=== PATIENT | male | born 1975 | race American Indian/Alaskan Native ===

== ENCOUNTER 2019-07-26 06:11 | Day surgery (SDC) | payer OTHER ==
[~2019-07-26 06:11] MED LIST: ceFAZolin/STERILE WATER 2 GM/20 ML SYRINGE IV NR
--- NOTE | 2019-07-26 07:23 | Anesthesia Consultation ---
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
--- NOTE | 2019-07-26 07:23 | Anesthesia Day of Surgery ---
Anesthesia Day of Surgery - Day of Surgery Patient Examined: Yes Patient H&P Reviewed: Yes Patient is NPO: Yes
[2019-07-26] MEDS ORDERED: LACTATED RINGERS 1,000 ML ONE (07:24)
[2019-07-26] MEDS ORDERED: LACTATED RINGERS 1,000 ML IV SCH (08:00)
[2019-07-26] MEDS ORDERED: FAMOTIDINE 20 MG/2 ML INJ IV NR (08:00)
[2019-07-26] MEDS ORDERED: MIDAZOLAM 2 MG/2 ML INJ IV NR (08:00)
[2019-07-26] MEDS ORDERED: HYDROmorphone 1 MG/1 ML INJ ONE ×2 (08:01→10:13)
[2019-07-26] MEDS ORDERED: PROPOFOL 200 MG/20 ML VIAL IV ONE (08:01)
[2019-07-26] MEDS ORDERED: LIDOCAINE MPF (2%) 20 MG/1 ML VIAL 5 ML ONE (08:02)
[2019-07-26] MEDS ORDERED: KETOROLAC 30 MG/1 ML INJ ONE (09:02)
[2019-07-26] MEDS ORDERED: ONDANSETRON 4 MG/2 ML INJ ONE (09:02)
--- NOTE | 2019-07-26 09:08 | Short Stay Summary ---
Short Stay Documentation Date of service: 07/26/19 Narrative H&P: 43 yr old male with 10mm left renal stone female present needs eswl - History Past Medical History: No medical history Past Surgical History: No surgical history Social history: no significant social history, single - Allergies and Medications Current Medications: Allergies No Known Allergies Allergy (Verified 06/11/19 16:18) Home Medications Medication Instructions Recorded Confirmed Last Taken Type Cholecalciferol (Vitamin D3) 2,000 unit PO QDAY 07/20/19 07/26/19 07/21/19 08:00 History [Vitamin D3 2,000 UNIT CAP] Active Medications Cefazolin Sodium (Ancef/Sterile Water 2 Gm/20 Ml) 2 gm IV PREOP NR Stop: 07/26/19 23:59 Famotidine (Pepcid) 20 mg IV PREOP NR Stop: 07/26/19 16:00 Last Admin: 07/26/19 07:37 Dose: 20 mg Documented by: Lactated Ringer's (Lactated Ringers) 1,000 mls @ 100 mls/hr IV DIRECT MELISSA Last Admin: 07/26/19 07:37 Dose: 100 mls/hr Documented by: Midazolam HCl (Versed) 2 mg IV PREOP NR Stop: 07/26/19 23:59 - Physical exam General appearance: no acute distress, well-nourished Integumentary: no rash, no growths HEENT: Atraumatic, PERRLA, EOMI Lungs: Clear to auscultation Heart: Regular rate, No murmurs Gastrointestinal: normal Male Genitourinary: normal Rectal Exam: deferred Extremities: no ischemia, No edema - Brief post op/procedure progress note Date of procedure: 07/26/19 Pre-op diagnosis: left renal stone Post-op diagnosis: same Procedure: left eswl Anesthesia: GETA Surgeon: EVANGELINA MARIE Pathology: none Condition: stable - Hospital course Hospital course: amandam, abena, post op info on chart - Disposition Condition at discharge: Stable Disposition: DC-01 TO HOME OR SELFCARE Short Stay Discharge Plan Follow up with: PRIMARY CARE, [Primary Care Provider] - 7 Days
--- NOTE | 2019-07-26 09:38 | Operative Report ---
PREOPERATIVE DIAGNOSIS: Left renal stone, 10 mm. POSTOPERATIVE DIAGNOSIS: Left renal stone, 10 mm. PROCEDURE: Left extracorporal shock wave lithotripsy, staged procedure. SURGEON: Mansoor Mojica MD ANESTHESIA: General. ESTIMATED BLOOD LOSS: Minimal. FLUIDS: Crystalloid. COMPLICATIONS: No complications. INDICATIONS: This patient is a 43-year-old gentleman seen by Dr. Begum in the office. CT of abdomen and pelvis revealed a left 10 mm stone. Risks, benefits, and complications were explained. Written information given. The patient agreed to proceed with surgical intervention. DESCRIPTION OF PROCEDURE: The patient was taken to the operative suite, placed in a supine position. After adequate general anesthesia, his stone was localized in 2 planes using fluoroscopy. Extracorporal shock wave lithotripsy was administered with a maximum kV of 8, 2500 shocks. 5-minute renal pause after 200 shocks was also performed. Adequate fragmentation could be appreciated. The patient tolerated the procedure well. He was extubated and taken to recovery room. He will go home on Ultram and [place] and strain his urine. JOB# [id number] [facility]
[2019-07-26 10:17] VITALS: BP 111/70
--- NOTE | 2019-07-26 18:57 | Post Anesthesia Evaluation ---
- Post Anesthesia Evaluation Patient Participated: Yes Airway Patent: Yes Stable Respiratory Function: Yes Nausea/Vomiting: No Temp > 96.8F: Yes Pain Manageable: Yes Adequeate Hydration: Yes Anesthesia Complications: No Block Receding Appropriately: Not Applicable Patient on Ventilator: No
== END 2019-07-26 06:12 | disposition home or self-care (01) ==
LOC: OR 06:11
PROVIDERS: ATTEND Urology
DX: N20.0 Calculus of kidney (principal); Z79.899 Other long term (current) drug therapy; Z98.890 Other specified postprocedural states
CPT/HCPCS: 50590; J0690; J1170; J1885; J2250; J2405; J2704; J7120

== ENCOUNTER 2019-08-21 03:24 | Emergency (ER) | payer SELFPAY ==
[2019-08-21 04:29] LABS: Bilirubin,Urine NEG (Negative); Blood,Urine SM (Negative); Color,Urine Straw (Yellow); Protein,Urine <15 mg/dL mg/dL (Negative); Urobilinogen,Urine < 2.0 mg/dL (<2.0)
[2019-08-21] MEDS ORDERED: MORPHINE IV ONE (04:37)
[2019-08-21] MEDS ORDERED: TORADOL IV ONE (04:37)
[2019-08-21] MEDS ORDERED: ZOFRAN IV ONE (04:37)
[2019-08-21] MEDS ORDERED: NACL 0.9% 1000 ML 1,000 ML IV ONE (04:37)
--- NOTE | 2019-08-21 04:45 | Emergency Department Report ---
ED General Adult HPI - General Chief complaint: Abdominal Pain Stated complaint: FLANK PAIN/EMESIS Time Seen by Provider: 08/21/19 04:21 Source: patient Mode of arrival: Ambulatory Limitations: No Limitations - History of Present Illness Initial comments: Patient is a 44-year-old male presents emergency room with complaints of left- sided flank pain that began yesterday. pt has associated nausea and vomiting. States that he had a lithotripsy done by Dr. Mojica, urologist on and denies any complications. Patient denies any diarrhea, fever, hematuria, dysuria. He denies any other past medical history or allergies medications. - Related Data Home Medications Medication Instructions Recorded Confirmed Last Taken Cholecalciferol (Vitamin D3) 2,000 unit PO QDAY 07/20/19 07/26/19 07/21/19 08:00 [Vitamin D3 2,000 UNIT CAP] Previous Rx's Medication Instructions Recorded Last Taken Type Ondansetron [Zofran Odt] 4 mg PO Q8HR PRN #10 tab.rapdis 08/21/19 Unknown Rx Tamsulosin [Flomax] 0.4 mg PO QDAY 5 Days #5 cap 08/21/19 Unknown Rx traMADol [Ultram 50 MG tab] 50 mg PO Q6HR PRN #10 tablet 08/21/19 Unknown Rx Allergies Allergy/AdvReac Type Severity Reaction Status Date / Time No Known Allergies Allergy Verified 06/11/19 16:18 ED Review of Systems ROS: Stated complaint: FLANK PAIN/EMESIS Other details as noted in HPI Comment: All other systems reviewed and negative ED Past Medical Hx - Past Medical History Previous Medical History?: Yes Hx Hypertension: No Hx Renal Disease: Yes (kidney stone) Hx Kidney Stones: Yes Hx Tuberculosis: Yes (POSITIVE SKIN TEST,NO TX,NEG CXR-2013) Hx HIV: No - Surgical History Past Surgical History?: Yes Additional Surgical History: l - Social History Smoking Status: Never Smoker Substance Use Type: Alcohol - Medications Home Medications: Home Medications Medication Instructions Recorded Confirmed Last Taken Type Cholecalciferol (Vitamin D3) 2,000 unit PO QDAY 07/20/19 07/26/19 07/21/19 08:00 History [Vitamin D3 2,000 UNIT CAP] Ondansetron [Zofran Odt] 4 mg PO Q8HR PRN #10 tab.rapdis 08/21/19 Unknown Rx Tamsulosin [Flomax] 0.4 mg PO QDAY 5 Days #5 cap 08/21/19 Unknown Rx traMADol [Ultram 50 MG tab] 50 mg PO Q6HR PRN #10 tablet 08/21/19 Unknown Rx ED Physical Exam - General Limitations: No Limitations General appearance: alert, in no apparent distress - Head Head exam: Present: atraumatic, normocephalic - Eye Eye exam: Present: normal appearance - ENT ENT exam: Present: mucous membranes moist - Respiratory Respiratory exam: Present: normal lung sounds bilaterally. Absent: respiratory distress, wheezes, rales, rhonchi, stridor, chest wall tenderness, accessory mu scle use, decreased breath sounds, prolonged expiratory - Cardiovascular Cardiovascular Exam: Present: regular rate, normal rhythm, normal heart sounds. Absent: systolic murmur, diastolic murmur, rubs, gallop - GI/Abdominal GI/Abdominal exam: Present: soft, tenderness (mild left sided), normal bowel sounds. Absent: distended, guarding, rebound, rigid - Back Exam Back exam: Present: CVA tenderness (L). Absent: CVA tenderness (R) - Neurological Exam Neurological exam: Present: alert, oriented X3 - Psychiatric Psychiatric exam: Present: normal affect, normal mood - Skin Skin exam: Present: warm, dry, intact, normal color ED Course Vital Signs 08/21/19 08/21/19 08/21/19 03:30 05:27 05:28 Temperature 98.1 F Pulse Rate 85 Respiratory 16 16 16 Rate Blood Pressure 131/89 Blood Pressure [Right] O2 Sat by Pulse 99 Oximetry 08/21/19 06:08 Temperature Pulse Rate 76 Respiratory 16 Rate Blood Pressure Blood Pressure 114/77 [Right] O2 Sat by Pulse Oximetry ED Medical Decision Making - Lab Data Result diagrams: 08/21/19 04:19 08/21/19 04:19 Lab Results 08/21/19 08/21/19 08/21/19 Range/Units 03:49 04:19 04:19 WBC 7.3 (4.5-11.0) K/mm3 RBC 4.70 (3.65-5.03) M/mm3 Hgb 13.4 (11.8-15.2) gm/dl Hct 40.6 (35.5-45.6) % MCV 86 (84-94) fl MCH 29 (28-32) pg MCHC 33 (32-34) % RDW 13.3 (13.2-15.2) % Plt Count 224 (140-440) K/mm3 Lymph % (Auto) 14.5 (13.4-35.0) % Winn % (Auto) 7.7 H (0.0-7.3) % Eos % (Auto) 1.0 (0.0-4.3) % Baso % (Auto) 0.4 (0.0-1.8) % Lymph # 1.1 L (1.2-5.4) K/mm3 Winn # 0.6 (0.0-0.8) K/mm3 Eos # 0.1 (0.0-0.4) K/mm3 Baso # 0.0 (0.0-0.1) K/mm3 Seg Neutrophils % 76.4 H (40.0-70.0) % Seg Neutrophils # 5.6 (1.8-7.7) K/mm3 Sodium 140 (137-145) mmol/L Potassium 4.3 (3.6-5.0) mmol/L Chloride 103.1 (98-107) mmol/L Carbon Dioxide 27 (22-30) mmol/L Anion Gap 14 mmol/L BUN 12 (9-20) mg/dL Creatinine 1.0 (0.8-1.5) mg/dL Estimated GFR > 60 ml/min BUN/Creatinine Ratio 12 % Glucose 134 H (75-100) mg/dL Calcium 9.0 (8.4-10.2) mg/dL Total Bilirubin 0.30 (0.1-1.2) mg/dL AST 18 (5-40) units/L ALT < 5 L (7-56) units/L Alkaline Phosphatase 92 (35-129) units/L Total Protein 7.5 (6.3-8.2) g/dL Albumin 4.4 (3.9-5) g/dL Albumin/Globulin Ratio 1.4 % Lipase 127 H (13-60) units/L Urine Color Straw (Yellow) Urine Turbidity Clear (Clear) Urine pH 6.0 (5.0-7.0) Ur Specific [place] 1.010 (1.003-1.030) Urine Protein <15 mg/dl (Negative) mg/dL Urine Glucose (UA) Neg (Negative) mg/dL Urine Ketones Neg (Negative) mg/dL Urine Blood Sm (Negative) Urine Nitrite Neg (Negative) Urine Bilirubin Neg (Negative) Urine Urobilinogen < 2.0 (<2.0) mg/dL Ur Leukocyte Esterase Neg (Negative) Urine WBC (Auto) 3.0 (0.0-6.0) /HPF Urine RBC (Auto) 3.0 (0.0-6.0) /HPF U Epithel Cells (Auto) < 1.0 (0-13.0) /HPF - Radiology Data Radiology results: report reviewed CT ABDOMEN AND PELVIS WITHOUT CONTRAST INDICATION / CLINICAL INFORMATION: left flank pain, lithotripsy on 07/26/19. TECHNIQUE: Axial CT images were obtained through the abdomen and pelvis without IV contrast. All CT scans at this location are performed using CT dose reduction for ALARA by means of automated exposure control. COMPARISON: None available. FINDINGS: LOWER CHEST: No significant abnormality. LIVER: No significant abnormality. GALLBLADDER: No significant abnormality. BILE DUCTS: No significant abnormality. PANCREAS: No significant abnormality. SPLEEN: No significant abnormality. ADRENALS: No significant abnormality. RIGHT KIDNEY and URETER: No significant abnormality. LEFT KIDNEY and URETER: Moderate left hydroureteronephrosis. Recent lithotripsy. Multiple nonobstructive calculi within the upper pole the left kidney. STOMACH and SMALL BOWEL: No significant abnormality. COLON: No significant abnormality. APPENDIX: No significant abnormality. PERITONEUM: No free fluid. No free air. No fluid collection. LYMPH NODES: No significant adenopathy. AORTA and ARTERIES: No significant abnormality. IVC and VEINS: No significant abnormality. URINARY BLADDER: 4 mm stone identified at the left ureterovesical junction.. REPRODUCTIVE ORGANS: No significant abnormality. ADDITIONAL FINDINGS: None. SKELETAL SYSTEM: No significant abnormality. IMPRESSION: 4 mm obstructive stone within the left ureterovesical junction causing moderate left hydroureteronephrosis. Signer Name: Fabio Prado MD Signed: 08/21/2019 5:09 AM Workstation Name: [id number] Transcribed By: SAMEER Dictated By: Fabio Prado MD Electronically Authenticated By: Fabio Prado MD Signed Date/Time: 08/21/19 0509 - Medical Decision Making Patient is a 44-year-old male presents emergency room with complaints of left- sided flank pain that began yesterday. pt has associated nausea and vomiting. States that he had a lithotripsy done by Dr. Mojica, urologist on and denies any complications. Patient denies any diarrhea, fever, hematuria, dysuria. He denies any other past medical history or allergies medications. VSS. on exam: left sided CVAT, mild left sided abd tenderness, no guarding, no rebound, no peritoneal signs. labs are stable, no leukocytosis, normal kidney function. UA without evidence of UTI. CT abd pelvis 4 mm obstructive stone within the left ureterovesical junction causing moderate left hydroureteronephrosis. Discussed case with Dr. Franky Streeter who states that there is an 80% chance of patient passing the stone where his kidney stone is present and the patient can be discharged home and follow-up as an outpatient with his urologist. Patient given prescription for pain medication, Flomax, Zofran. advised pt to please take medication as prescribed. Do not drive or operate heavy machinery while taking pain medication. Please increase your water intake for the next several days. follow up with Dr. Mojica, your urologist in the next 2-3 days. Return to the emergency room for any new or worsening symptoms. - Differential Diagnosis nephrolithiasis, obstructive stone, hydronephrosis, pyelonephritis Critical care attestation.: If time is entered above; I have spent that time in minutes in the direct care of this critically ill patient, excluding procedure time. ED Disposition Clinical Impression: Left flank pain, Nephrolithiasis, Hydroureteronephrosis Disposition: DC-01 TO HOME OR SELFCARE Is pt being admited?: No Does the pt Need Aspirin: No Condition: Stable Instructions: Kidney Stones (ED) Additional Instructions: please take medication as prescribed. Do not drive or operate heavy machinery while taking pain medication. Please increase your water intake for the next several days. follow up with Dr. Mojica, your urologist in the next 2-3 days. Return to the emergency room for any new or worsening symptoms. Prescriptions: Tamsulosin [Flomax] 0.4 mg PO QDAY 5 Days #5 cap traMADol [Ultram 50 MG tab] 50 mg PO Q6HR PRN #10 tablet PRN Reason: Pain , Severe (7-10) Ondansetron [Zofran Odt] 4 mg PO Q8HR PRN #10 tab.rapdis PRN Reason: Nausea And Vomiting Referrals: EVANGELINA MOJICA MD [Staff Physician] - 2-3 Days Time of Disposition: 05:23 Print Language: STATELESS
[2019-08-21 04:54] LABS: Basophils % (Auto) 0.4 % (0.0-1.8); Eosinophils # (Auto) 0.1 K/mm3 (0.0-0.4); Hematocrit 40.6 % (35.5-45.6); Hemoglobin 13.4 gm/dl (11.8-15.2); Lymphocytes # (Auto) 1.1 K/mm3 (1.2-5.4); Lymphocytes % (Auto) 14.5 % (13.4-35.0); Mean Corpuscular HGB Conc 33 % (32-34); Mean Corpuscular Volume 86 fl (84-94); Monocytes # (Auto) 0.6 K/mm3 (0.0-0.8); Monocytes % (Auto) 7.7 % (0.0-7.3); Platelet Count 224 K/mm3 (140-440); Red Cell Distribution Width 13.3 % (13.2-15.2)
[2019-08-21 05:12] LABS: Albumin 4.4 g/dL (3.9-5); BUN/Creatinine Ratio 12; Blood Urea Nitrogen 12 mg/dL (9-20); Hemolysis Index 4
[2019-08-21 05:13] LABS: Alanine Aminotransferase < 5 units/L (7-56)
--- NOTE | 2019-08-21 05:13 | Cat Scan Report ---
CT ABDOMEN AND PELVIS WITHOUT CONTRAST INDICATION / CLINICAL INFORMATION: left flank pain, lithotripsy on 07/26/19. TECHNIQUE: Axial CT images were obtained through the abdomen and pelvis without IV contrast. All CT scans at [facility] location are performed using CT dose reduction for ALARA by means of automated exposure control. COMPARISON: None available. FINDINGS: LOWER CHEST: No significant abnormality. LIVER: No significant abnormality. GALLBLADDER: No significant abnormality. BILE DUCTS: No significant abnormality. PANCREAS: No significant abnormality. SPLEEN: No significant abnormality. ADRENALS: No significant abnormality. RIGHT KIDNEY and URETER: No significant abnormality. LEFT KIDNEY and URETER: Moderate left hydroureteronephrosis. Recent lithotripsy. Multiple nonobstruct evgeny calculi within the upper pole the left kidney. STOMACH and SMALL BOWEL: No significant abnormality. COLON: No significant abnormality. APPENDIX: No significant abnormality. PERITONEUM: No free fluid. No free air. No fluid collection. LYMPH NODES: No significant adenopathy. AORTA and ARTERIES: No significant abnormality. IVC and VEINS: No significant abnormality. URINARY BLADDER: 4 mm stone identified at the left ureterovesical junction.. REPRODUCTIVE ORGANS: No significant abnormality. ADDITIONAL FINDINGS: None. SKELETAL SYSTEM: No significant abnormality. IMPRESSION: 4 mm obstructive stone within the left ureterovesical junction causing moderate left hydroureteroneph rosis. Signer Name: Fabio Prado MD Signed: 08/21/2019 5:09 AM Workstation Name: [id number]
[2019-08-21 06:09] VITALS: BP 114/77
== END 2019-08-21 06:07 | disposition home or self-care (01) ==
LOC: ED 03:24
DX: N13.2 Hydronephrosis with renal and ureteral calculous obstruction (principal); Z87.442 Personal history of urinary calculi; Z79.899 Other long term (current) drug therapy
CPT/HCPCS: 36415; 74176; 80053; 81001; 83690; 85025; 96361; 96374; 96375; 99284; J1885; J2270; J2405; J7030

== ENCOUNTER 2019-10-08 06:46 | Day surgery (SDC) | payer OTHER ==
[2019-10-08] MEDS ORDERED: ONDANSETRON 4 MG/2 ML INJ IV PRN (07:41)
[2019-10-08] MEDS ORDERED: fentaNYL 100 MCG/2 ML INJ IV PRN (07:41)
--- NOTE | 2019-10-08 07:42 | Anesthesia Day of Surgery ---
Anesthesia Day of Surgery - Day of Surgery Patient Examined: Yes Patient H&P Reviewed: Yes Patient is NPO: Yes
--- NOTE | 2019-10-08 07:58 | Anesthesia Consultation ---
Anesthesia Consult and Med Hx Date of service: 10/08/19 - Pre-Operative Health Status Proposed Anesthetic Plan: General - Pulmonary Hx Smoking: No Hx Respiratory Symptoms: No (positive TB test) Hx Sleep Apnea: No (JESUS PRE SCREEN LOW RISK.) - Cardiovascular System Hx Hypertension: No - Gastrointestinal Hx Gastroesophageal Reflux Disease: Yes (food related) - Other Systems Hx Cancer: No
[2019-10-08] MEDS ORDERED: LACTATED RINGERS 1,000 ML IV SCH (08:00)
[2019-10-08] MEDS ORDERED: MIDAZOLAM 2 MG/2 ML INJ IV NR (08:16)
[2019-10-08] MEDS ORDERED: ceFAZolin/STERILE WATER 2 GM/20 ML SYRINGE IV NR (08:26)
--- NOTE | 2019-10-08 08:36 | Anesthesia Consultation ---
Anesthesia Consult and Med Hx Date of service: 10/08/19 - Airway Anesthetic Teeth Evaluation: Dentures ROM Head & Neck: Adequate Mental/Hyoid Distance: Adequate Mallampati Class: Class II Intubation Access Assessment: Good - Pulmonary Exam CTA: Yes - Cardiac Exam Cardiac Exam: RRR - Pre-Operative Health Status ASA Pre-Surgery Classification: ASA2 Proposed Anesthetic Plan: General (Possible sinus arrthymia on EKG will get EKG otherwise asymptomatic ) - Pulmonary Hx Smoking: No Hx Respiratory Symptoms: No (positive TB test) Hx Sleep Apnea: No (JESUS PRE SCREEN LOW RISK.) - Cardiovascular System Hx Hypertension: No - Gastrointestinal Hx Gastroesophageal Reflux Disease: Yes (food related) - Other Systems Hx Cancer: No
--- NOTE | 2019-10-08 08:40 | Anesthesia Consultation ---
Anesthesia Consult and Med Hx Date of service: 10/08/19 - Airway Anesthetic Teeth Evaluation: Dentures ROM Head & Neck: Adequate Mental/Hyoid Distance: Adequate Mallampati Class: Class II Intubation Access Assessment: Good - Pulmonary Exam CTA: Yes - Cardiac Exam Cardiac Exam: RRR - Pre-Operative Health Status ASA Pre-Surgery Classification: ASA2 Proposed Anesthetic Plan: General (Possible sinus arrthymia on Monitor will get EKG otherwise asympyomatic ) - Pulmonary Hx Smoking: No Hx Respiratory Symptoms: No (positive TB test) Hx Sleep Apnea: No (JESUS PRE SCREEN LOW RISK.) - Cardiovascular System Hx Hypertension: No - Gastrointestinal Hx Gastroesophageal Reflux Disease: Yes (food related) - Other Systems Hx Cancer: No
--- NOTE | 2019-10-08 10:07 | Progress Note ---
Subjective Date of service: 10/08/19 (EKG shows patientis in Afib with slow heart rate 60- 80, assessed by Cardiology Dr Alonso - patient for cardiac work up prior to surgery , Dr Mojica informed , case postponed )
--- NOTE | 2019-10-08 10:12 | Consultation ---
History of Present Illness Consult date: 10/08/19 Requesting physician: EVANGELINA MARIE Consult reason: atrial fibrillation History of present illness: 44-year-old male with no past medical history had kidney stones here for repeat urological procedure for removal on preop assessment EKG shows new onset H fibrillation with controlled rate. Patient denies any palpitations chest pain or shortness of breath. Patient states being active without issue. States 2 years ago by the stress test that was negative. At [facility]. Patient is denying any fatigue or lightheadedness. No syncope. Past History Past Medical History: denies: No medical history Past Surgical History: Other (kidney stones) Social history: other (social drinker). denies: smoking, alcohol abuse, p rescription drug abuse Family history: denies: no significant family history Medications and Allergies Allergies Allergy/AdvReac Type Severity Reaction Status Date / Time No Known Allergies Allergy Verified 06/11/19 16:18 Home Medications Medication Instructions Recorded Confirmed Last Taken Type Cholecalciferol (Vitamin D3) 2,000 unit PO QDAY 07/20/19 10/03/19 07/21/19 08:00 History [Vitamin D3 2,000 UNIT CAP] Ondansetron [Zofran Odt] 4 mg PO Q8HR PRN #10 tab.rapdis 08/21/19 10/03/19 Unknown Rx Tamsulosin [Flomax] 0.4 mg PO QDAY 5 Days #5 cap 08/21/19 10/03/19 Unknown Rx traMADoL [Ultram 50 MG tab] 50 mg PO Q6HR PRN #10 tablet 08/21/19 10/03/19 Unknown Rx Active Meds: Active Medications Cefazolin Sodium (Ancef/Sterile Water 2 Gm/20 Ml) 2 gm IV PREOP NR Stop: 10/08/19 16:00 Fentanyl (Sublimaze) 50 mcg IV Q5MIN PRN PRN Reason: Pain , Severe (7-10) Stop: 10/08/19 22:00 Lactated Ringer's (Lactated Ringers) 1,000 mls @ 125 mls/hr IV DIRECT MELISSA Midazolam HCl (Versed) 2 mg IV ONCE NR Stop: 10/08/19 13:00 Ondansetron HCl (Zofran) 4 mg IV ONCE PRN PRN Reason: Nausea And Vomiting Stop: 10/08/19 22:00 Review of Systems All systems: negative (as per the HPI) Physical Examination General appearance: no acute distress, well-nourished HEENT: Positive: PERRL, Mucus Membranes Moist Neck: Positive: neck supple, trachea midline Cardiac: Positive: Irregularly Regular, S1/S2, Audible Murmur Lungs: Positive: clear to auscultation, Normal Breath Sounds Neuro: Positive: Grossly Intact Abdomen: Positive: Soft, Active Bowel Sounds. Negative: Tender, Distended Male genitourinary: Positive: normal Skin: Positive: Clear Incision: Cardiac Cath Site Musculoskeletal: No Pain, Normal Range of Motion Extremities: Present: normal. Absent: edema EKG interpretations - Telemetry EKG Rhythm: Atrial Fibrillation (with control rate 60s) Assessment and Plan 44-year-old male with new onset atrial fibrillation denies any chest pain or palpitations has no hypertension diabetes stroke we'll do an echocardiogram for LV function. Your 24-hour Holter for heart rate control as patient is on no AV hussein blocking agents. Check a thyroid level and lab work. Would advise postponement of urological procedure until further evaluation of new onset atrial fibrillation. Patient's chads score is 0 - Patient Problems (1) Atrial fibrillation Current Visit: Yes Status: Acute Qualifiers: Atrial fibrillation type: unspecified Qualified Code(s): I48.91 - Un specified atrial fibrillation (2) Pre-op evaluation Current Visit: Yes Status: Acute (3) Kidney calculus Current Visit: Yes Status: Acute
[2019-10-08 12:19] LABS: Basophils % (Auto) 0.8 % (0.0-1.8); Eosinophils # (Auto) 0.2 K/mm3 (0.0-0.4); Eosinophils % (Auto) 3.5 % (0.0-4.3); Hematocrit 42.8 % (35.5-45.6); Hemoglobin 14.5 gm/dl (11.8-15.2); Lymphocytes # (Auto) 2.1 K/mm3 (1.2-5.4); Lymphocytes % (Auto) 41.8 % (13.4-35.0); Mean Corpuscular HGB Conc 34 % (32-34); Mean Corpuscular Volume 86 fl (84-94); Monocytes # (Auto) 0.4 K/mm3 (0.0-0.8); Monocytes % (Auto) 8.8 % (0.0-7.3); Platelet Count 253 K/mm3 (140-440); Red Blood Count 5.01 M/mm3 (3.65-5.03); Red Cell Distribution Width 13.4 % (13.2-15.2)
[2019-10-08 12:35] LABS: BUN/Creatinine Ratio 14; Blood Urea Nitrogen 11 mg/dL (9-20); Calcium 9.4 mg/dL (8.4-10.2); Hemolysis Index 39
[2019-10-08 14:12] VITALS: BP 120/69
[2019-10-11] MEDS ORDERED: ceFAZolin/STERILE WATER 2 GM/20 ML SYRINGE IV NR (00:01)
== END 2019-10-08 12:45 | disposition home or self-care (01) ==
LOC: OR 06:46
PROVIDERS: ATTEND Urology
DX: N20.0 Calculus of kidney (principal); I48.91 Unspecified atrial fibrillation; K21.9 Gastro-esophageal reflux disease without esophagitis; Z53.8 Procedure and treatment not carried out for other reasons; Z79.899 Other long term (current) drug therapy; Z98.890 Other specified postprocedural states; I51.7 Cardiomegaly
CPT/HCPCS: 36415; 80048; 84439; 84443; 85025; 93005; 93010; 93306; J2250; J7120

== ENCOUNTER 2019-10-18 23:48 | Inpatient (IN) | payer OTHER, SELFPAY ==
--- NOTE | 2019-10-19 00:23 | XRay Report ---
CHEST 1 VIEW INDICATION / CLINICAL INFORMATION: Chest Pain. COMPARISON: None available. FINDINGS: SUPPORT DEVICES: None. HEART / MEDIASTINUM: No significant abnormality. LUNGS / PLEURA: No significant pulmonary or pleural abnormality. No pneumothorax. ADDITIONAL FINDINGS: No significant additional findings. IMPRESSION: 1. No significant change Signer Name: Wilfrido Dodson MD Signed: 10/19/2019 12:19 AM Workstation Name: [id number]
--- NOTE | 2019-10-19 00:29 | Emergency Department Report ---
ED Palpitations HPI - General Chief Complaint: Arrhythmia/Palpitations Stated Complaint: HEART PALPITATION Time Seen by Provider: 10/19/19 00:26 Source: patient Mode of arrival: Ambulatory Limitations: No Limitations - History of Present Illness Initial Comments: Patient is is a 44-year-old mellitus emergency room with complaints of palpitations, chest pain and dyspnea on exertion. Patient states his symptoms started today at 8 PM. Patient states he does not have a history of A. fib. Patient states the he's had palpitations in the past. Patient states his symptoms are worse with exertion and better with rest. Patient states the chest pain is in the center of his chest and is a 3 out of 10. Patient states his heart races at times. MD Complaint: rapid heart beat, "heart racing", palpitations -: Sudden Associated Symptoms: chest pain, shortness of breath. denies: syncope, near- syncope, nausea/vomiting, anxiety, diaphoresis, cough, parasthesias, feeling of impending doom, muscle cramps - Related Data Allergies Allergy/AdvReac Type Severity Reaction Status Date / Time No Known Allergies Allergy Verified 06/11/19 16:18 ED Review of Systems ROS: Stated complaint: HEART PALPITATION Other details as noted in HPI Constitutional: denies: chills, fever Eyes: denies: eye pain, eye discharge, vision change ENT: denies: ear pain, throat pain Respiratory: shortness of breath. denies: cough, wheezing Cardiovascular: chest pain, palpitations, dyspnea on exertion Endocrine: no symptoms reported Gastrointestinal: denies: abdominal pain, nausea, diarrhea Genitourinary: denies: urgency, dysuria Musculoskeletal: denies: back pain, joint swelling, arthralgia Skin: denies: rash, lesions Neurological: denies: headache, weakness, paresthesias Psychiatric: denies: anxiety, depression Hematological/Lymphatic: denies: easy bleeding, easy bruising ED Past Medical Hx - Past Medical History Previous Medical History?: Yes Hx Hypertension: No Hx GERD: Yes (FOOD RELATED) Hx Kidney Stones: Yes Hx Tuberculosis: Yes (POSITIVE SKIN TEST,NO TX,NEG CXR-2013) Hx HIV: No - Surgical History Past Surgical History?: No Additional Surgical History: l - Social History Smoking Status: Never Smoker Substance Use Type: None ED Physical Exam - General Limitations: No Limitations General appearance: alert, in no apparent distress - Head Head exam: Present: atraumatic, normocephalic - Eye Eye exam: Present: normal appearance - ENT ENT exam: Present: mucous membranes moist - Neck Neck exam: Present: normal inspection - Respiratory Respiratory exam: Present: normal lung sounds bilaterally. Absent: respiratory distress, wheezes, rales - Cardiovascular Cardiovascular Exam: Present: regular rate, normal rhythm. Absent: systolic murmur, diastolic murmur, rubs, gallop - GI/Abdominal GI/Abdominal exam: Present: soft, normal bowel sounds. Absent: distended, tenderness, guarding - Rectal Rectal exam: Present: deferred - Extremities Exam Extremities exam: Present: normal inspection - Back Exam Back exam: Present: normal inspection - Neurological Exam Neurological exam: Present: alert, oriented X3 - Psychiatric Psychiatric exam: Present: normal affect, normal mood - Skin Skin exam: Present: warm, dry, intact, normal color. Absent: rash ED Course Vital Signs 10/18/19 10/19/19 10/19/19 23:52 00:17 00:18 Temperature 97.9 F 97.9 F Pulse Rate 78 81 67 Respiratory 20 12 22 Rate Blood Pressure 124/86 Blood Pressure 126/86 [Right] O2 Sat by Pulse 99 100 100 Oximetry 10/19/19 10/19/19 10/19/19 00:30 00:45 01:00 Temperature Pulse Rate 74 73 70 Respiratory 24 19 19 Rate Blood Pressure 122/86 122/86 116/81 Blood Pressure [Right] O2 Sat by Pulse 99 100 100 Oximetry 10/19/19 10/19/19 10/19/19 01:15 01:30 02:00 Temperature Pulse Rate 62 59 L 73 Respiratory 20 21 19 Rate Blood Pressure 116/81 114/81 116/71 Blood Pressure [Right] O2 Sat by Pulse 99 97 100 Oximetry 10/19/19 10/19/19 10/19/19 02:30 03:00 03:30 Temperature Pulse Rate 76 76 71 Respiratory 13 22 Rate Blood Pressure 112/79 120/81 114/80 Blood Pressure [Right] O2 Sat by Pulse 99 99 98 Oximetry 10/19/19 10/19/19 04:00 04:30 Temperature Pulse Rate 89 75 Respiratory 12 22 Rate Blood Pressure 127/76 127/84 Blood Pressure [Right] O2 Sat by Pulse 98 98 Oximetry - Reevaluation(s) Reevaluation #1: I discussed all results with patient. I discussed plan of care patient. Patient agrees with plan of care and admission. Patient will be admitted to the hospitalist service. 10/19/19 03:23 - Consultations Consultation #1: Hospitalist consult for admission. Hospitalist admit patient. Hospitalist requested heparin drip to be started. 10/19/19 03:24 ED Medical Decision Making - Lab Data Result diagrams: 10/19/19 03:32 10/19/19 00:32 - EKG Data -: EKG Interpreted by Me EKG shows normal: axis, intervals, QRS complexes, ST-T waves Rate: normal - EKG Data Interpretation: other (A. fib) - Radiology Data Radiology results: report reviewed, image reviewed interpreted by me: No acute findings on cxr CHEST 1 VIEW INDICATION / CLINICAL INFORMATION: Chest Pain. COMPARISON: None available. FINDINGS: SUPPORT DEVICES: None. HEART / MEDIASTINUM: No significant abnormality. LUNGS / PLEURA: No significant pulmonary or pleural abnormality. No pneumothorax. ADDITIONAL FINDINGS: No significant additional findings. IMPRESSION: 1. No significant change - Medical Decision Making Patient is a 44-year-old male up since emergency room with complaints of chest pain, palpitations and racing heartbeat. Patient found to be in A. fib. Patient does not history of A. fib. Patient admitted to the hospitalist service for further evaluation and treatment and rule out ACS. Patient chest x-ray negative. Patient's labs unremarkable. Patient's EKG shows A. fib. After I discussed the case with the hospitalist, the hospitalist recommended a heparin drip. Patient's heparin drip protocol was initiated. - Differential Diagnosis A. fib, palpitations, chest pain, ACS. Critical Care Time: Yes Critical care time in (mins) excluding proc time.: 35 Critical care attestation.: If time is entered above; I have spent that time in minutes in the direct care of this critically ill patient, excluding procedure time. Critical Care Time: 35 minutes ED Disposition Clinical Impression: QUINTANILLA (dyspnea on exertion), Palpitations, New onset a-fib Atrial fibrillation Qualifiers: Atrial fibrillation type: unspecified Qualified Code(s): I48.91 - Unspecified atrial fibrillation Chest pain Qualifiers: Chest pain type: unspecified Qualified Code(s): R07.9 - Chest pain, unspecified Disposition: DC-09 OP ADMIT IP TO THIS HOSP Is pt being admited?: Yes Does the pt Need Aspirin: No Condition: Critical Time of Disposition: 03:25
[2019-10-19 00:54] LABS: Basophils % (Auto) 0.6 % (0.0-1.8); Eosinophils # (Auto) 0.2 K/mm3 (0.0-0.4); Hemoglobin 13.6 gm/dl (11.8-15.2); Lymphocytes # (Auto) 2.5 K/mm3 (1.2-5.4); Lymphocytes % (Auto) 47.1 % (13.4-35.0); Mean Corpuscular HGB Conc 34 % (32-34); Mean Corpuscular Volume 86 fl (84-94); Monocytes # (Auto) 0.5 K/mm3 (0.0-0.8); Monocytes % (Auto) 9.5 % (0.0-7.3); Platelet Count 258 K/mm3 (140-440); Red Blood Count 4.65 M/mm3 (3.65-5.03); Red Cell Distribution Width 13.6 % (13.2-15.2)
[2019-10-19 01:16] LABS: BUN/Creatinine Ratio 9; Blood Urea Nitrogen 8 mg/dL (9-20); Calcium 9.2 mg/dL (8.4-10.2); Hemolysis Index 2
[2019-10-19] MEDS ORDERED: HEPARIN 10,000 UNITS/10 ML VIAL IV ONE ×2 (03:21→18:27)
[2019-10-19 03:45] LABS: Hematocrit 39.9 % (35.5-45.6); Hemoglobin 13.4 gm/dl (11.8-15.2)
[2019-10-19] MEDS: HEPARIN/ 0.45% NACL DRIP 25,000 UNIT/500 ML BAG IV SCH ×3 (03:45→18:49)
[2019-10-19 03:55] LABS: INR 1.11 (0.87-1.13); Partial Thromboplastin Time 32.7 Sec. (24.2-36.6)
--- NOTE | 2019-10-19 03:59 | History and Physical Report ---
History of Present Illness Date of examination: 10/19/19 History of present illness: 44-year-old a history of kidney stones, GERD, comes to the emergency room for evaluation fluttering of his heart. He status post lithotripsy 9 weeks ago however he has a piece of this stone retained. On October 12 for a fo llow-up lithotripsy and he was noted to have an abnormal rhythm, he was having palpitations at the time. Dr. Perez saw the patient in consultation and he followed up with him where he had a monitor place for 24 hours. Today on 8 PM he started having palpitation which was constant, dizziness and associated chest pain that lasts for 1-2 seconds Review of systems Constitutional: no weight loss, chills, fever Ears, eyes, nose, mouth and throat: no nasal congestion, no nasal discharge, no sinus pressure, no vision change, no red eye. Neck: No neck pain or rigidity. Cardiovascular: + chest pain, palpitations Respiratory: no cough, shortness of breath Gastrointestinal: no abdominal pain, hematochezia Genitourinary : no frequency , no hematuria Musculoskeletal: no joint swelling or muscle ache Integumentary: no rash, no pruritis Neurological:no parathesias numbness, focal weakness Endocrine: no cold or heat intolerance, no polyuria or polydipsia Hematologic/Lymphatic: no easy bruising, no easy bleeding, no gland swelling Allergic/Immunologic: no urticaria, no angioedema. PAST MEDICAL HISTORY: Kidney stones, GERD PAST SURGICAL HISTORY:none SOCIAL HISTORY:social alcohol, no drugs or tobacco FAMILY HISTORY: Hypertension Medications and Allergies Allergies Allergy/AdvReac Type Severity Reaction Status Date / Time No Known Allergies Allergy Verified 06/11/19 16:18 Home Medications Medication Instructions Recorded Confirmed Last Taken Type No Known Home Medications [No 10/19/19 10/19/19 Unknown History Reported Home Medications] Active Meds: Active Medications Heparin Sodium/Sodium Chloride (Heparin/ 0.45% Nacl-25,000 Unit/500 Ml) 25,000 unit in 500 mls @ 24 mls/hr IV TITR MELISSA; Protocol Last Admin: 10/19/19 03:45 Dose: 1,200 units/hr, 24 mls/hr Documented by: Exam - Physical Exam Narrative exam: Gen. appearance: Patient lying in bed, no apparent distress HEENT: Normocephalic, atraumatic, pupils equally round and reactive to light, extraocular movement intact, and no sclericterus,. No JVD or thyromegaly or nodule,neck supple, no carotid bruit ,mucous membranes moist, no exudate or erythema Heart: S1, S2, irregular rate and rhythm Lungs: Clear bilaterally, breathing comfortable Abdomen: Positive bowel sounds, non-tender, nondistended, no organomegaly Extremity:no edema cyanosis, clubbing Skin: no rash, dry, warm Neuro: Oriented 3, cranial nerves II-12 intact, speech is fluent, motor and sensory intact - Constitutional Vitals: Temp Pulse Resp BP Pulse Ox 97.9 F 71 22 114/80 98 10/19/19 00:18 10/19/19 03:30 10/19/19 03:30 10/19/19 03:30 10/19/19 03:30 Results - Labs CBC & Chem 7: 10/19/19 05:48 10/19/19 05:48 Labs: Abnormal lab results 10/19/19 10/19/19 Range/Units 00:32 00:32 Lymph % (Auto) 47.1 H (13.4-35.0) % [place] % (Auto) 9.5 H (0.0-7.3) % Seg Neutrophils % 39.8 L (40.0-70.0) % BUN 8 L (9-20) mg/dL Glucose 102 H (75-100) mg/dL - Imaging and Cardiology EKG: image reviewed Chest x-ray: report reviewed Assessment and Plan Assessment New-onset A. fib Check cardiac enzymes, TSH, echo Consult cardiology Continue heparin drip, start aspirin DVT prophylaxis
[2019-10-19] MEDS ORDERED: ONDANSETRON 4 MG/2 ML INJ IV PRN (04:55)
[2019-10-19] MEDS ORDERED: ACETAMINOPHEN 325 MG TAB PO PRN (04:55)
[2019-10-19 06:13] LABS: Eosinophils # (Auto) 0.1 K/mm3 (0.0-0.4); Eosinophils % (Auto) 2.3 % (0.0-4.3); Hemoglobin 13.6 gm/dl (11.8-15.2); Lymphocytes # (Auto) 1.7 K/mm3 (1.2-5.4); Lymphocytes % (Auto) 36.2 % (13.4-35.0); Mean Corpuscular HGB Conc 34 % (32-34); Mean Corpuscular Volume 86 fl (84-94); Monocytes # (Auto) 0.4 K/mm3 (0.0-0.8); Platelet Count 258 K/mm3 (140-440); Red Blood Count 4.67 M/mm3 (3.65-5.03); Red Cell Distribution Width 13.7 % (13.2-15.2)
[2019-10-19 06:28] LABS: Creatine Kinase MB 1.4 ng/mL (0.0-4.0)
[2019-10-19 06:29] LABS: BUN/Creatinine Ratio 9; Blood Urea Nitrogen 8 mg/dL (9-20); Calcium 9.4 mg/dL (8.4-10.2); Hemolysis Index 1
[2019-10-19] MEDS: ASPIRIN 81 MG TAB CHEW PO SCH (10:40)
--- NOTE | 2019-10-19 11:36 | Consultation ---
History of Present Illness Consult date: 10/19/19 Requesting physician: FROYLAN MICHAUD Consult reason: atrial fibrillation History of present illness: The pt is a 44-year-old male with a past medical history of kidney stones and newly diagnosed AFib. He has been seen by Dr. Alonso. On 10/08/2019, pt presented for scheduled OP lithotropsy and preop EKG showed new onset AFib with controlled rate. At that time, pt had no cardiac complaints. He underwent echo 10/08/2019 which showed EF 50%, mild LVH, trace TR, no significant abnormalities. He was scheduled for 24Hr Holter study in our office which he completed and results are pending. Yesterday evening around 8:30PM he developed palpitations and dizziness and thus decided to seek medical attention. He was found to be in AFib with controlled ventricular rate following arrival and thus was initiated on heparin gtt and admitted to telemetry overnight. he remains in AFib with CVR this morning. Pt denies any occurrence of chest pain, SOB, n/v, diaphoresis or syncope. He has no known prior cardiac issues, no HTN, DM, HLP. He denies tobacco use, ETOH use or illicit drug use. Past History Past Surgical History: Other (kidney stones) Social history: denies: smoking, alcohol abuse Medications and Allergies Allergies Allergy/AdvReac Type Severity Reaction Status Date / Time No Known Allergies Allergy Verified 06/11/19 16:18 Home Medications Medication Instructions Recorded Confirmed Last Taken Type No Known Home Medications [No 10/19/19 10/19/19 Unknown History Reported Home Medications] Active Meds: Active Medications Acetaminophen (Tylenol) 650 mg PO Q4H PRN PRN Reason: Pain MILD(1-3)/Fever >100.5/RODRÍGUEZ Aspirin (Baby Aspirin) 81 mg PO DAILY [facility] Last Admin: 10/19/19 10:40 Dose: 81 mg Documented by: Heparin Sodium/Sodium Chloride (Heparin/ 0.45% Nacl-25,000 Unit/500 Ml) 25,000 unit in 500 mls @ 24 mls/hr IV TITR [facility]; Protocol Last Admin: 10/19/19 11:07 Dose: 1,100 units/hr, 22 mls/hr Documented by: Ondansetron HCl (Zofran) 4 mg IV Q8H PRN PRN Reason: Nausea And Vomiting Sodium Chloride (Sodium Chloride Flush Syringe 10 Ml) 10 ml IV BID [facility] Last Admin: 10/19/19 10:44 Dose: 10 ml Documented by: Sodium Chloride (Sodium Chloride Flush Syringe 10 Ml) 10 ml IV PRN PRN PRN Reason: LINE FLUSH Review of Systems Constitutional: no weight loss, no weight gain, no fever, no chills, no sweats Ears, nose, mouth and throat: no ear pain, no nose pain, no sinus pressure, no sinus pain Cardiovascular: palpitations, rapid/irregular heart beat, lightheadedness, no chest pain, no orthopnea, no edema, no syncope, no shortness of breath, no dyspnea on exertion, no high blood pressure, no leg edema, no decreased exercise tolerance Respiratory: no cough, no shortness of breath, no dyspnea on exertion, no congestion, no wheezing, no pain on inspiration Gastrointestinal: no abdominal pain, no nausea, no vomiting, no diarrhea, no constipation, no change in bowel habits Genitourinary Male: no dysuria, no hematuria, no flank pain, no discharge, no urinary frequency, no urinary hesitancy Musculoskeletal: no neck stiffness, no neck pain, no shooting arm pain, no arm numbness/tingling, no low back pain, no shooting leg pain Integumentary: no rash, no pruritis, no redness, no sores, no wounds Neurological: no head injury, no paralysis, no weakness, no parathesias, no numbness, no tingling, no seizures, no syncope Psychiatric: no anxiety Endocrine: no cold intolerance, no heat intolerance Hematologic/Lymphatic: no easy bruising, no easy bleeding Allergic/Immunologic: no urticaria Physical Examination Vital Signs Temp Pulse Resp BP Pulse Ox 97.9 F 78 20 124/86 99 10/18/19 23:52 10/18/19 23:52 10/18/19 23:52 10/18/19 23:52 10/18/19 23:52 General appearance: no acute distress HEENT: Positive: PERRL, Normocephaly, Mucus Membranes Moist Neck: Positive: neck supple, trachea midline Cardiac: Positive: irregularly irregular, S1/S2 Lungs: Positive: clear to auscultation Neuro: Positive: Grossly Intact Abdomen: Negative: Tender Skin: Negative: Rash Musculoskeletal: No Pain Extremities: Absent: edema Results 10/19/19 05:48 10/19/19 05:48 Cardiac Enzymes 10/19/19 Range/Units 05:48 CK-MB (CK-2) 1.4 (0.0-4.0) ng/mL Coagulation 10/19/19 Range/Units 03:32 PT 14.4 (12.2-14.9) Sec. INR 1.11 (0.87-1.13) APTT 32.7 (24.2-36.6) Sec. CBC 10/19/19 10/19/19 10/19/19 Range/Units 00:32 03:32 05:48 WBC 5.4 4.8 (4.5-11.0) K/mm3 RBC 4.65 4.67 (3.65-5.03) M/mm3 Hgb 13.6 13.4 13.6 (11.8-15.2) gm/dl Hct 40.0 39.9 40.0 (35.5-45.6) % Plt Count 258 265 258 (140-440) K/mm3 Lymph # 2.5 1.7 (1.2-5.4) K/mm3 [place] # 0.5 0.4 (0.0-0.8) K/mm3 Eos # 0.2 0.1 (0.0-0.4) K/mm3 Baso # 0.0 0.0 (0.0-0.1) K/mm3 Comprehensive Metabolic Panel 10/19/19 10/19/19 Range/Units 00:32 05:48 Sodium 140 139 (137-145) mmol/L Potassium 3.9 4.0 (3.6-5.0) mmol/L Chloride 104.8 105.3 (98-107) mmol/L Carbon Dioxide 25 24 (22-30) mmol/L BUN 8 L 8 L (9-20) mg/dL Creatinine 0.9 0.9 (0.8-1.5) mg/dL Glucose 102 H 114 H (75-100) mg/dL Calcium 9.2 9.4 (8.4-10.2) mg/dL - Imaging and Cardiology Echo: report reviewed (10/08/2019 which showed EF 50%, mild LVH, trace TR, no significant abnormalities. ) EKG: report reviewed, image reviewed EKG interpretations - Telemetry EKG Rhythm: Atrial Fibrillation - EKG Supraventricular dysrhythmia: atrial fibrillation Assessment and Plan TTE reviewed with no significant abnormalities. Thyroid profile WNL. Obtain serum Mg. 24Hr Holter study from our office reviewed - pt was in NSR with no arrhythmias visualized. We will attempt to chemically convert to NSR with IV amiodarone. If unable to chemically convert, can consider KIMBERLI guided DCCV. Can continue heparin gtt in the interim although pt has a current CHADS score of 0 and thus [facility] systemic AC will likely not be indicated. The patient has been seen in conjunction with Dr. Montez who agrees with the assessment and plan of care. - Patient Problems (1) New onset a-fib Current Visit: Yes Status: Acute (2) History of kidney stones Current Visit: Yes Status: Chronic
[2019-10-19] MEDS ORDERED: AMIODARONE 150 MG in DEXTROSE 5% IN WATER 97 ML IV ONE (12:30)
[2019-10-19] MEDS ORDERED: AMIODARONE 900 MG in DEXTROSE 5% IN WATER 482 ML IV SCH (13:00)
[2019-10-19 13:13] LABS: Creatine Kinase MB 1.2 ng/mL (0.0-4.0)
--- NOTE | 2019-10-19 13:41 | Progress Note ---
Assessment and Plan Assessment and plan: Patient is a 44-year-old man with a history of kidney stones who presented to [facility] with palpitations. He was found to have AFib. He has been followed by the [facility] Dr. Alonso. On 10/08/2019, went for outpatient lithotropsy and preop EKG showed new onset AFib with controlled rate. He was initiated on heparin gtt and admitted to telemetry overnight. * Echo: report reviewed (10/08/2019 which showed EF 50%, mild LVH, trace TR, no significant abnormalities. ) * EKG: Atrial Fibrillation * TTE reviewed with no significant abnormalities. Thyroid profile WNL. Obtain serum Mg. * 24Hr Holter study from [facility] office reveal NSR with no arrhythmias visualized. New onset Afib with symptoms requiring inpatient admission: IV Amiodarone planned to try to chemically convert, on IV heparin drip History of kidney stones: pain control History Interval history: Patient was seen and examined. Follow-up on current diagnosis of Afib. Overnight uneventful. Patient denies any chest pain, shortness breath, nausea/vomiting or severe headaches. Imaging, nursing note, chart, labs and old chart reviewed. Discussed with patient. Hospitalist Physical - Physical exam Narrative exam: Gen: WDWN, NAD, Awake, Alert, Orientated HEENT: NCAT, EOMI, PERRL, OP Clear Neck: supple, no adenopathy, no thyromegaly, no JVD CVS/Heart: irregular irregular, normal S1S2, pulses present bilaterally Chest/Lungs: CTA B, Symmetrical chest expansion, good air entry bilaterally GI/Abdomen: soft, NTND, good bowel sounds, no guarding or rebound /Bladder: no suprapubic tenderness, no CVA or paraspinal tenderness Extermity/Skin: no c/c/e, no obvious rash MSK: FROM x 4 Neuro: CN 2-12 grossly intact, no new focal deficits Psych: calm - Constitutional Vitals: Temp Pulse Resp BP Pulse Ox 98.7 F 76 18 104/72 98 10/19/19 07:39 10/19/19 12:49 10/19/19 10:31 10/19/19 12:49 10/19/19 12:49 General appearance: Present: no acute distress Results - Labs CBC & Chem 7: 10/19/19 05:48 10/19/19 05:48 Labs: Laboratory Last Values WBC 4.8 K/mm3 (4.5-11.0) 10/19/19 05:48 RBC 4.67 M/mm3 (3.65-5.03) 10/19/19 05:48 Hgb 13.6 gm/dl (11.8-15.2) 10/19/19 05:48 Hct 40.0 % (35.5-45.6) 10/19/19 05:48 MCV 86 fl (84-94) 10/19/19 05:48 MCH 29 pg (28-32) 10/19/19 05:48 MCHC 34 % (32-34) 10/19/19 05:48 RDW 13.7 % (13.2-15.2) 10/19/19 05:48 Plt Count 258 K/mm3 (140-440) 10/19/19 05:48 Lymph % (Auto) 36.2 % (13.4-35.0) H 10/19/19 05:48 [place] % (Auto) 8.0 % (0.0-7.3) H 10/19/19 05:48 Eos % (Auto) 2.3 % (0.0-4.3) 10/19/19 05:48 Baso % (Auto) 1.0 % (0.0-1.8) 10/19/19 05:48 Lymph # 1.7 K/mm3 (1.2-5.4) 10/19/19 05:48 [place] # 0.4 K/mm3 (0.0-0.8) 10/19/19 05:48 Eos # 0.1 K/mm3 (0.0-0.4) 10/19/19 05:48 Baso # 0.0 K/mm3 (0.0-0.1) 10/19/19 05:48 Seg Neutrophils % 52.5 % (40.0-70.0) 10/19/19 05:48 Seg Neutrophils # 2.5 K/mm3 (1.8-7.7) 10/19/19 05:48 PT 14.4 Sec. (12.2-14.9) 10/19/19 03:32 INR 1.11 (0.87-1.13) 10/19/19 03:32 APTT 32.7 Sec. (24.2-36.6) 10/19/19 03:32 Heparin Anti-Xa Level 0.76 U.I./ml (0.3-0.7) H 10/19/19 09:45 Sodium 139 mmol/L (137-145) 10/19/19 05:48 Potassium 4.0 mmol/L (3.6-5.0) 10/19/19 05:48 Chloride 105.3 mmol/L (98-107) 10/19/19 05:48 Carbon Dioxide 24 mmol/L (22-30) 10/19/19 05:48 Anion Gap 14 mmol/L 10/19/19 05:48 BUN 8 mg/dL (9-20) L 10/19/19 05:48 Creatinine 0.9 mg/dL (0.8-1.5) 10/19/19 05:48 Estimated GFR > 60 ml/min 10/19/19 05:48 BUN/Creatinine Ratio 9 % 10/19/19 05:48 Glucose 114 mg/dL (75-100) H 10/19/19 05:48 Calcium 9.4 mg/dL (8.4-10.2) 10/19/19 05:48 Magnesium 2.00 mg/dL (1.7-2.3) 10/19/19 12:18 Total Creatine Kinase 90 units/L (55-170) 10/19/19 12:18 CK-MB (CK-2) 1.2 ng/mL (0.0-4.0) 10/19/19 12:18 CK-MB (CK-2) Rel Index 1.3 (0-4) 10/19/19 12:18 Troponin T < 0.010 ng/mL (0.00-0.029) 10/19/19 12:18 TSH 1.940 mlU/mL (0.270-4.200) 10/19/19 04:03 Active Medications - Current Medications Current Medications: Generic Name Dose Route Start Last Admin Trade Name Freq PRN Reason Stop Dose Admin Acetaminophen 650 mg 10/19/19 04:55 Tylenol PO Q4H PRN Pain MILD(1-3)/Fever >100.5/RODRÍGUEZ Aspirin 81 mg 10/19/19 10:00 10/19/19 10:40 Baby Aspirin PO 81 mg DAILY MELISSA Administration Heparin Sodium/Sodium Chloride 25,000 unit in 500 mls @ 24 mls/hr 10/19/19 04:00 10/19/19 11:07 Heparin/ 0.45% Nacl-25,000 Unit/500 Ml IV 1,100 units/hr TITR MELISSA 22 mls/hr Administration Protocol 1,200 UNITS/HR Amiodarone HCl 900 mg/ 500 mls @ 33.333 mls/hr 10/19/19 13:00 Dextrose IV DIRECT MELISSA Protocol 1 MG/MIN Ondansetron HCl 4 mg 10/19/19 04:55 Zofran IV Q8H PRN Nausea And Vomiting Sodium Chloride 10 ml 10/19/19 10:00 10/19/19 10:44 Sodium Chloride Flush Syringe 10 Ml IV 10 ml BID MELISSA Administration Sodium Chloride 10 ml 10/19/19 04:55 Sodium Chloride Flush Syringe 10 Ml IV PRN PRN LINE FLUSH
[2019-10-20] MEDS: HEPARIN/ 0.45% NACL DRIP 25,000 UNIT/500 ML BAG IV SCH (00:37)
[2019-10-20 08:18] LABS: Chol/HDL Ratio 4.16 %
--- NOTE | 2019-10-20 09:38 | Progress Note ---
Assessment and Plan Will discontinue amiodarone and heparin drips. No indication for OAC at this time d/t CHADs score of 0 and short duration. Etiology of paroxysmal atrial fibrillation unclear. Will continue to monitor - if rhythm recurs, will consider further antiarrhythmic management and/or KIMBERLI/DCCV. The patient has been seen in conjunction with Dr. Isaacs, who agrees with the assessment and plan. - Patient Problems (1) Paroxysmal atrial fibrillation with RVR Current Visit: Yes Status: Resolved Plan to address problem: Now in SR (2) History of kidney stones Current Visit: Yes Status: Chronic Subjective Date of service: 10/20/19 Interval history: Patient is lying in bed in NAD. He has no complaints. Telemetry reviewed - now in SR in 80s. Objective Last Vital Signs Temp 98.2 F 10/20/19 07:55 Pulse 76 10/20/19 07:55 Resp 18 10/20/19 07:55 BP 105/74 10/20/19 07:55 Pulse Ox 98 10/20/19 08:52 - Physical Examination General: No Apparent Distress HEENT: Positive: PERRL, Normocephaly, Mucus Membranes Moist Neck: Positive: neck supple, trachea midline Cardiac: Positive: Reg Rate and Rhythm Lungs: Positive: Normal Exam Neuro: Positive: Grossly Intact Abdomen: Positive: Unremarkable. Negative: Tender /Rectal: Other (deferred) Skin: Positive: Clear. Negative: Rash Musculoskeletal: No Pain Extremities: Present: normal. Absent: edema - Labs and Meds Cardiac Enzymes 10/19/19 Range/Units 12:18 CK-MB (CK-2) 1.2 (0.0-4.0) ng/mL Lipids 10/20/19 Range/Units 00:53 Triglycerides 49 (2-149) mg/dL Cholesterol 175 (50-199) mg/dL HDL Cholesterol 42 (40-59) mg/dL Cholesterol/HDL Ratio 4.16 % - Imaging and Cardiology EKG: report reviewed, image reviewed Echo: report reviewed (10/08/2019 which showed EF 50%, mild LVH, trace TR, no significant abnormalities. ) - Telemetry EKG Rhythm: Sinus Rhythm
[2019-10-20] MEDS: ASPIRIN 81 MG TAB CHEW PO SCH (09:42)
--- NOTE | 2019-10-20 12:36 | Progress Note ---
Assessment and Plan Assessment and plan: Patient is a 44-year-old man with a history of kidney stones who presented to [facility] with palpitations. He was found to have AFib. He has been followed by the Refrigerator Tester Dr. Alonso. On 10/08/2019, went for outpatient lithotropsy and preop EKG showed new onset AFib with controlled rate. He was initiated on heparin gtt and iv amiodarone. He converted to sinus rhythm 10/19/2019 at 1925pm * Echo: report reviewed (10/08/2019 which showed EF 50%, mild LVH, trace TR, no significant abnormalities. ) * EKG: Atrial Fibrillation * TTE reviewed with no significant abnormalities. Thyroid profile WNL. Obtain serum Mg. * 24Hr Holter study from Refrigerator Tester office reveal NSR with no arrhythmias visualized. New onset Afib with symptoms requiring inpatient admission: He converted with iv amiodarone, now switch to oral, monitor overnight to see if he stays in sinus rhythm and if so then d/c tomorrow. No a/c need per Cardiology, low CHADS score History of kidney stones: pain control Dispo: continue inpatient care, anticipate d/c tomorrow if stays NSR History Interval history: Patient was seen and examined. Follow-up on current diagnosis of Afib. Overnight uneventful. Patient denies any chest pain, shortness breath, nausea/vomiting or severe headaches. Imaging, nursing note, chart, labs and old chart reviewed. Discussed with patient. Hospitalist Physical - Physical exam Narrative exam: Gen: WDWN, NAD, Awake, Alert, Orientated x 3 HEENT: NCAT, EOMI, PERRL, OP Clear Neck: supple, no adenopathy, no thyromegaly, no JVD CVS/Heart: rrr, normal S1S2, pulses present bilaterally Chest/Lungs: CTA B, Symmetrical chest expansion, good air entry bilaterally GI/Abdomen: soft, NTND, good bowel sounds, no guarding or rebound /Bladder: no suprapubic tenderness, no CVA or paraspinal tenderness Extermity/Skin: no c/c/e, no obvious rash MSK: FROM x 4 Neuro: CN 2-12 grossly intact, no new focal deficits Psych: calm - Constitutional Vitals: Temp Pulse Resp BP Pulse Ox 98.2 F 76 18 105/74 96 10/20/19 07:55 10/20/19 07:55 10/20/19 10:00 10/20/19 07:55 10/20/19 10:00 General appearance: Present: no acute distress Results - Labs CBC & Chem 7: 10/19/19 05:48 10/19/19 05:48 Labs: Laboratory Last Values WBC 4.8 K/mm3 (4.5-11.0) 10/19/19 05:48 RBC 4.67 M/mm3 (3.65-5.03) 10/19/19 05:48 Hgb 13.6 gm/dl (11.8-15.2) 10/19/19 05:48 Hct 40.0 % (35.5-45.6) 10/19/19 05:48 MCV 86 fl (84-94) 10/19/19 05:48 MCH 29 pg (28-32) 10/19/19 05:48 MCHC 34 % (32-34) 10/19/19 05:48 RDW 13.7 % (13.2-15.2) 10/19/19 05:48 Plt Count 258 K/mm3 (140-440) 10/19/19 05:48 Lymph % (Auto) 36.2 % (13.4-35.0) H 10/19/19 05:48 [place] % (Auto) 8.0 % (0.0-7.3) H 10/19/19 05:48 Eos % (Auto) 2.3 % (0.0-4.3) 10/19/19 05:48 Baso % (Auto) 1.0 % (0.0-1.8) 10/19/19 05:48 Lymph # 1.7 K/mm3 (1.2-5.4) 10/19/19 05:48 [place] # 0.4 K/mm3 (0.0-0.8) 10/19/19 05:48 Eos # 0.1 K/mm3 (0.0-0.4) 10/19/19 05:48 Baso # 0.0 K/mm3 (0.0-0.1) 10/19/19 05:48 Seg Neutrophils % 52.5 % (40.0-70.0) 10/19/19 05:48 Seg Neutrophils # 2.5 K/mm3 (1.8-7.7) 10/19/19 05:48 PT 14.4 Sec. (12.2-14.9) 10/19/19 03:32 INR 1.11 (0.87-1.13) 10/19/19 03:32 APTT 32.7 Sec. (24.2-36.6) 10/19/19 03:32 Heparin Anti-Xa Level 1.19 U.I./ml (0.3-0.7) H 10/20/19 09:35 Sodium 139 mmol/L (137-145) 10/19/19 05:48 Potassium 4.0 mmol/L (3.6-5.0) 10/19/19 05:48 Chloride 105.3 mmol/L (98-107) 10/19/19 05:48 Carbon Dioxide 24 mmol/L (22-30) 10/19/19 05:48 Anion Gap 14 mmol/L 10/19/19 05:48 BUN 8 mg/dL (9-20) L 10/19/19 05:48 Creatinine 0.9 mg/dL (0.8-1.5) 10/19/19 05:48 Estimated GFR > 60 ml/min 10/19/19 05:48 BUN/Creatinine Ratio 9 % 10/19/19 05:48 Glucose 114 mg/dL (75-100) H 10/19/19 05:48 Calcium 9.4 mg/dL (8.4-10.2) 10/19/19 05:48 Magnesium 2.00 mg/dL (1.7-2.3) 10/19/19 12:18 Total Creatine Kinase 90 units/L (55-170) 10/19/19 12:18 CK-MB (CK-2) 1.2 ng/mL (0.0-4.0) 10/19/19 12:18 CK-MB (CK-2) Rel Index 1.3 (0-4) 10/19/19 12:18 Troponin T < 0.010 ng/mL (0.00-0.029) 10/19/19 12:18 Triglycerides 49 mg/dL (2-149) 10/20/19 00:53 Cholesterol 175 mg/dL (50-199) 10/20/19 00:53 LDL Cholesterol Direct 125 mg/dL (50-130) 10/20/19 00:53 HDL Cholesterol 42 mg/dL (40-59) 10/20/19 00:53 Cholesterol/HDL Ratio 4.16 % 10/20/19 00:53 TSH 1.940 mlU/mL (0.270-4.200) 10/19/19 04:03 Active Medications - Current Medications Current Medications: Generic Name Dose Route Start Last Admin Trade Name Freq PRN Reason Stop Dose Admin Acetaminophen 650 mg 10/19/19 04:55 Tylenol PO Q4H PRN Pain MILD(1-3)/Fever >100.5/[id number] Aspirin 81 mg 10/19/19 10:00 10/20/19 09:42 Baby Aspirin PO 81 mg DAILY MELISSA Administration Ondansetron HCl 4 mg 10/19/19 04:55 Zofran IV Q8H PRN Nausea And Vomiting Sodium Chloride 10 ml 10/19/19 10:00 10/20/19 09:42 Sodium Chloride Flush Syringe 10 Ml IV 10 ml BID MELISSA Administration Sodium Chloride 10 ml 10/19/19 04:55 Sodium Chloride Flush Syringe 10 Ml IV PRN PRN LINE FLUSH
[2019-10-21 07:25] LABS: Hematocrit 37.7 % (35.5-45.6); Hemoglobin 12.7 gm/dl (11.8-15.2)
[2019-10-21 09:15] VITALS: BP 104/69
[2019-10-21] MEDS: ASPIRIN 81 MG TAB CHEW PO SCH (09:51)
--- NOTE | 2019-10-21 10:47 | Discharge Summary ---
Providers - Providers Date of Admission: 10/19/19 05:32 Date of discharge: 10/21/19 Attending physician: ALESSANDRO BILLY 10/19/19 04:55 Consult to Physician [CONS] Routine Comment: Consulting Provider: NIMCO ALONSO Physician Instructions: Reason For Exam: afb Primary care physician: WEATHERIZATION TECHNICIAN Hospitalization Condition: Stable Hospital course: Patient is a 44-year-old man with a history of kidney stones who presented to [facility] with palpitations. He was found to have AFib. He has been followed by the Helpdesk Specialist Dr. Alonso. On 10/08/2019, went for outpatient lithotropsy and preop EKG showed new onset AFib with controlled rate. He was initiated on heparin gtt and iv amiodarone. He converted to sinus rhythm 10/19/2019 at 1925pm * Echo: report reviewed (10/08/2019 which showed EF 50%, mild LVH, trace TR, no significant abnormalities. ) * EKG: Atrial Fibrillation * TTE reviewed with no significant abnormalities. Thyroid profile WNL. Obtain serum Mg. * 24Hr Holter study from Helpdesk Specialist office reveal NSR with no arrhythmias visualized. New onset Afib with symptoms requiring inpatient admission: He converted with iv amiodarone, No a/c need per Cardiology, low CHADS score History of kidney stones: pain control Disposition: DC-01 TO HOME OR SELFCARE Time spent for discharge: 33 minutes Core Measure Documentation - Palliative Care Palliative Care/ Comfort Measures: Not Applicable - Core Measures Any of the following diagnoses?: none - VTE Discharge Requirements Deep Vein Thrombosis/Pulmonary Embolism Present on Admission: No Has pt received <5 days of overlap therapy or INR<2.0: No Anticoagulant overlap therapy prescribed at discharge: No Contraindication No Overlap Therapy order at DC: Not Indicated Exam - Physical Exam Narrative exam: Gen: WDWN, NAD, Awake, Alert, Orientated x 3 HEENT: NCAT, EOMI, PERRL, OP Clear Neck: supple, no adenopathy, no thyromegaly, no JVD CVS/Heart: rrr, normal S1S2, pulses present bilaterally Chest/Lungs: CTA B, Symmetrical chest expansion, good air entry bilaterally GI/Abdomen: soft, NTND, good bowel sounds, no guarding or rebound /Bladder: no suprapubic tenderness, no CVA or paraspinal tenderness Extermity/Skin: no c/c/e, no obvious rash MSK: FROM x 4 Neuro: CN 2-12 grossly intact, no new focal deficits Psych: calm - Constitutional Vitals: Temp Pulse Resp BP Pulse Ox 98.0 F 75 20 104/69 98 10/21/19 08:44 10/21/19 08:44 10/21/19 08:44 10/21/19 08:46 10/21/19 08:44 Plan Activity: other (no strenous activity until cleared by Helpdesk Specialist) Diet: low salt Follow up with: PRIMARY MD JOVANNA [Primary Care Provider] - 7 Days NIMCO ALONSO MD [Staff Physician] - 7 Days
--- NOTE | 2019-10-21 13:15 | Progress Note ---
Assessment and Plan Cardiac status is stable. He may be discharged home from our perspective. Follow up with Dr. Montez in 7-10 days ([phone]). The patient has been seen in conjunction with Dr. Isaacs, who agrees with the assessment and plan. - Patient Problems (1) Paroxysmal atrial fibrillation with RVR Current Visit: Yes Status: Resolved (2) History of kidney stones Current Visit: Yes Status: Chronic Subjective Date of service: 10/21/19 Interval history: The patient is lying in bed in [facility]. He has no complaints. Telemetry reviewed - SR in 70s with no additional episodes of atrial fibrillation or other arrhythmias. Objective Last Vital Signs Temp 98.0 F 10/21/19 08:44 Pulse 67 10/21/19 10:00 Resp 24 10/21/19 10:00 BP 104/69 10/21/19 08:46 Pulse Ox 98 10/21/19 10:00 - Physical Examination General: No Apparent Distress HEENT: Positive: PERRL, Normocephaly, Mucus Membranes Moist Neck: Positive: neck supple, trachea midline Cardiac: Positive: Reg Rate and Rhythm Lungs: Positive: Normal Exam Neuro: Positive: Grossly Intact Abdomen: Positive: Unremarkable. Negative: Tender /Rectal: Other (deferred) Skin: Positive: Clear. Negative: Rash Musculoskeletal: No Pain Extremities: Present: normal. Absent: edema - Labs and Meds CBC 10/21/19 Range/Units 06:43 Hgb 12.7 (11.8-15.2) gm/dl Hct 37.7 (35.5-45.6) % Plt Count 249 (140-440) K/mm3 - Imaging and Cardiology EKG: image reviewed Echo: report reviewed (10/08/2019 which showed EF 50%, mild LVH, trace TR, no significant abnormalities. )
== END 2019-10-21 14:58 | disposition home or self-care (01) | DRG 310 ==
LOC: ED 23:48 → 4A 10-19 05:32
PROVIDERS: ADMIT Internal Medicine; ATTEND Internal Medicine
DX: I48.0 Paroxysmal atrial fibrillation (principal); I48.20 Chronic atrial fibrillation, unspecified; K21.9 Gastro-esophageal reflux disease without esophagitis; R07.9 Chest pain, unspecified; Z87.442 Personal history of urinary calculi; Z82.49 Family history of ischemic heart disease and other diseases of the circulatory system; Z86.11 Personal history of tuberculosis
CPT/HCPCS: 36415; 71045; 80048; 80061; 82550; 82553; 83735; 84443; 84484; 85014; 85018; 85025; 85049; 85520; 85610; 85730; 93005; 93010; G0378; J0282; J1644; J7060

== ENCOUNTER 2020-01-11 16:10 | Emergency (ER) | payer OTHER, SELFPAY ==
--- NOTE | 2020-01-11 16:37 | Emergency Department Report ---
Blank Doc - Documentation Documentation: 44 y/o with a previous history of Afib dx September 2019 but had resolved prese nts c/o of palpitations and sob.
[2020-01-11 17:01] LABS: Basophils % (Auto) 0.6 % (0.0-1.8); Eosinophils # (Auto) 0.2 K/mm3 (0.0-0.4); Eosinophils % (Auto) 3.4 % (0.0-4.3); Hematocrit 40.7 % (35.5-45.6); Hemoglobin 13.5 gm/dl (11.8-15.2); Mean Corpuscular HGB Conc 33 % (32-34); Mean Corpuscular Volume 87 fl (84-94); Monocytes # (Auto) 0.5 K/mm3 (0.0-0.8); Monocytes % (Auto) 8.8 % (0.0-7.3); Platelet Count 245 K/mm3 (140-440); Red Blood Count 4.69 M/mm3 (3.65-5.03)
--- NOTE | 2020-01-11 17:09 | XRay Report ---
CHEST 2 VIEWS INDICATION: Dysrhythmia. COMPARISON: 10/19/2019. FINDINGS: Support devices: None. Heart: Within normal limits. Lungs/Pleura: No acute air space or interstitial disease. No significant pleural effusion. IMPRESSION: No acute findings. Signer Name: Gianni Horta MD Signed: 01/11/2020 5:04 PM Workstation Name: [id number]
[2020-01-11 17:23] LABS: BUN/Creatinine Ratio 11; Blood Urea Nitrogen 10 mg/dL (9-20); Calcium 9.4 mg/dL (8.4-10.2); Hemolysis Index 6
--- NOTE | 2020-01-11 17:25 | Emergency Department Report ---
HPI - General Chief Complaint: Arrhythmia/Palpitations Time Seen by Provider: 01/11/20 16:33 - HPI HPI: Room 24 The patient is a 44-year-old male present with a chief complaint of palpitations. Patient states his symptoms began today with intermittent palpitations feeling as though his heart was beating quicker. Patient denies chest pain but admits to a slight shortness of breath. Patient denies nausea or vomiting. The patient states his metoprolol was decreased from 12.5 mg twice daily to 12.5 mg daily approximately 1.5 months ago. Patient states he has been compliant with his medication ED Past Medical Hx - Past Medical History Previous Medical History?: Yes Hx Hypertension: No (TAKES MEDS TO CONTROL RATE) Hx GERD: Yes (FOOD RELATED) Hx Kidney Stones: Yes Hx Tuberculosis: Yes (POSITIVE SKIN TEST,NO TX,NEG CXR-2013) Additional medical history: Atrial fibrillation - Surgical History Past Surgical History?: Yes Additional Surgical History: l - Family History Family history: no significant - Social History Smoking Status: Never Smoker Substance Use Type: Alcohol - Medications Home Medications: Home Medications Medication Instructions Recorded Confirmed Last Taken Type Aspirin [Aspirin BABY CHEW TAB] 81 mg PO DAILY #30 tab.chew 10/21/19 11/08/19 Unknown Rx Metoprolol [Lopressor TAB] 25 mg PO BID 11/08/19 11/08/19 Unknown History Tamsulosin [Flomax] 0.4 mg PO QDAY 11/08/19 11/08/19 Unknown History traMADoL [Ultram] 50 mg PO Q4HR PRN 11/08/19 11/08/19 Unknown History Apixaban [Eliquis] 5 mg PO BID #30 tablet 01/11/20 Unknown Rx Metoprolol Succinate [Toprol Xl] 25 mg PO QDAY #30 tab.er.24h 01/11/20 Unknown Rx ED Review of Systems ROS: Stated complaint: FLUTTERING HEART Other details as noted in HPI Physical Exam - Physical Exam Vital Signs: Vital Signs 01/11/20 16:33 Temperature 98.0 F Pulse Rate 82 Respiratory 18 Rate Blood Pressure 108/81 O2 Sat by Pulse 99 Oximetry ED Course Vital Signs 01/11/20 16:33 Temperature 98.0 F Pulse Rate 82 Respiratory 18 Rate Blood Pressure 108/81 O2 Sat by Pulse 99 Oximetry - Consultations Consultation #1: 03/13/20 17:30 Cardiology paged 01/11/20 17:[address] Ayala-recommends initiating Eliquis 5 mg twice daily, increasing the patient's Toprol-XL to 25 mg daily and following up in office next week ED Medical Decision Making - Lab Data Result diagrams: 01/11/20 16:39 01/11/20 16:39 Laboratory Tests 01/11/20 01/11/20 16:39 16:39 WBC 5.6 RBC 4.69 Hgb 13.5 Hct 40.7 MCV 87 MCH 29 MCHC 33 RDW 14.0 Plt Count 245 Lymph % (Auto) 35.0 [place] % (Auto) 8.8 H Eos % (Auto) 3.4 Baso % (Auto) 0.6 Lymph # 2.0 [place] # 0.5 Eos # 0.2 Baso # 0.0 Seg Neutrophils % 52.2 Seg Neutrophils # 2.9 Sodium 139 Potassium 3.8 Chloride 103.6 Carbon Dioxide 23 Anion Gap 16 BUN 10 Creatinine 0.9 Estimated GFR > 60 BUN/Creatinine Ratio 11 Glucose 104 H Calcium 9.4 Troponin T < 0.010 - EKG Data -: EKG Interpreted by Me Rate: normal - EKG Data When compared to previous EKG there are: previous EKG unavailable Interpretation: other (Atrial fibrillation at 80 bpm) - Radiology Data Radiology results: report reviewed (Chest x-ray), image reviewed (Chest x-ray) interpreted by me: Chest x-ray-no focal infiltrates, no pneumothorax [facility] [address] [place] [address] XRay Report Signed Patient: HONEY OCAMPO MR#: [id number] : 1975 Acct:[id number] Age/Sex: 44 / M ADM Date: 01/11/20 Loc: ED Attending Dr: Ordering Physician: JOSE G CARO Date of Service: 01/11/20 Procedure(s): XR chest routine 2V Accession Number(s): [id number] cc: JOSE G CARO Fluoro Time In Minutes: CHEST 2 VIEWS INDICATION: Dysrhythmia. COMPARISON: 10/19/2019. FINDINGS: Support devices: None. Heart: Within normal l imits. Lungs/Pleura: No acute air space or interstitial disease. No significant pleural effusion. IMPRESSION: No acute findings. Signer Name: Gianni Horta MD Signed: 01/11/2020 5:04 PM Workstation Name: [id number] Transcribed By: ES Dictated By: Gianni Horta MD Electronically Authenticated By: Gianni Horta MD Signed Date/Time: 01/11/201703 DD/ 01 TD/TT: - Differential Diagnosis A. fib with rapid ventricular response, anxiety, symptomatic anemia, dysrhy Critical care attestation.: If time is entered above; I have spent that time in minutes in the direct care of this critically ill patient, excluding procedure time. ED Disposition Clinical Impression: Atrial fibrillation Disposition: - TO HOME OR SELFCARE Is pt being admited?: No Does the pt Need Aspirin: No Condition: Stable Instructions: Atrial Fibrillation (ED) Additional Instructions: Return to the emergency department should you develop worsening symptoms, inability to tolerate food or liquids, high fever or any other concerns Prescriptions: Apixaban [Eliquis] 5 mg PO BID #30 tablet Metoprolol Succinate [Toprol Xl] 25 mg PO QDAY #30 tab.er.24h Referrals: NIMCO STILES MD [Staff Physician] - 3-5 Days Time of Disposition: 17:50
[2020-01-11 18:10] VITALS: BP 108/82
== END 2020-01-11 18:45 | disposition home or self-care (01) ==
LOC: ED 16:10
DX: I48.91 Unspecified atrial fibrillation (principal); K21.9 Gastro-esophageal reflux disease without esophagitis; Z87.442 Personal history of urinary calculi; Z79.899 Other long term (current) drug therapy; Z86.11 Personal history of tuberculosis
CPT/HCPCS: 36415; 71046; 80048; 84484; 85025; 93005; 93010

== ENCOUNTER 2020-04-11 11:57 | Emergency (ER) | payer OTHER ==
[2020-04-11 12:05] VITALS: BP 107/74
--- NOTE | 2020-04-11 12:28 | Event Note ---
ED Screening Note ED Screening Note: began having palpitations last night states he goes into afib he states he is taking eliquis and sotalol hris specialist: Dr. Alonso began having CP today at work sharp pain, constant no radiation had mild SOB no n/v PMHx lithotripsy no allergies to meds occasional ETOH use non smoker This initial assessment/diagnostic orders/clinical plan/treatment(s) is/are subject to change based on patients health status, clinical progression and re- assessment by fellow clinical providers in the ED. Further treatment and workup at subsequent clinical providers discretion. Patient/guardian urged not to elope from the ED as their condition may be serious if not clinically assessed and managed. Initial orders include: CP protocol
[2020-04-11 13:11] LABS: Basophils % (Auto) 0.9 % (0.0-1.8); Eosinophils # (Auto) 0.1 K/mm3 (0.0-0.4); Eosinophils % (Auto) 3.9 % (0.0-4.3); Hematocrit 37.8 % (35.5-45.6); Hemoglobin 12.7 gm/dl (11.8-15.2); Lymphocytes # (Auto) 1.6 K/mm3 (1.2-5.4); Lymphocytes % (Auto) 42.5 % (13.4-35.0); Mean Corpuscular HGB Conc 34 % (32-34); Mean Corpuscular Volume 88 fl (84-94); Monocytes # (Auto) 0.4 K/mm3 (0.0-0.8); Platelet Count 208 K/mm3 (140-440); Red Blood Count 4.32 M/mm3 (3.65-5.03); Red Cell Distribution Width 13.7 % (13.2-15.2)
[2020-04-11 13:36] LABS: Alanine Aminotransferase 19 units/L (7-56); Albumin 4.3 g/dL (3.9-5); BUN/Creatinine Ratio 13; Blood Urea Nitrogen 10 mg/dL (9-20); Hemolysis Index 5
[2020-04-11 13:48] LABS: INR 1.31 (0.87-1.13)
[2020-04-11 13:49] LABS: Partial Thromboplastin Time 33.5 Sec. (24.2-36.6)
--- NOTE | 2020-04-11 14:11 | Emergency Department Report ---
ED Palpitations HPI - General Chief Complaint: Arrhythmia/Palpitations Stated Complaint: CHEST PAIN Time Seen by Provider: 04/11/20 12:23 Source: patient Mode of arrival: Ambulatory Limitations: No Limitations - History of Present Illness Initial Comments: Mr. Magaña is a 44-year-old male who was diagnosed with atrial fibrillation in September. He is followed by body shop estimator Dr. Reilly. Recently rate control medication was changed from metoprolol to sotalol 80 mg twice daily. He has intermittent fluttering palpitations. He denies chest pain. He wants to know when it is appropriate to come to the emergency department. He is compliant with Eliquis. The fluttering is mostly at night. He has follow-up with his body shop estimator on Tuesday. Since his diagnosis he has been afraid to have any physical exertion such as exercise or intercourse. He also noted that he is unable to decipher if he is in rapid atrial fibrillation now that he is on sotalol. His symptoms are not as prominent. Patient reports normal outpatient cardiac stress test. MD Complaint: rapid heart beat, "heart racing", "skipped beats", irregular heart beat -: Gradual, week(s) (For several weeks) Context: occured during rest Arrythmia History: atrial fibrillation Associated Symptoms: denies other symptoms - Related Data Home Medications Medication Instructions Recorded Confirmed Last Taken Metoprolol [Lopressor TAB] 25 mg PO BID 11/08/19 11/08/19 Unknown Tamsulosin [Flomax] 0.4 mg PO QDAY 11/08/19 11/08/19 Unknown traMADoL [Ultram] 50 mg PO Q4HR PRN 11/08/19 11/08/19 Unknown Previous Rx's Medication Instructions Recorded Last Taken Type Aspirin [Aspirin BABY CHEW TAB] 81 mg PO DAILY #30 tab.chew 10/21/19 Unknown Rx Apixaban [Eliquis] 5 mg PO BID #30 tablet 01/11/20 Unknown Rx Metoprolol Succinate [Toprol Xl] 25 mg PO QDAY #30 tab.er.24h 01/11/20 Unknown Rx Allergies Allergy/AdvReac Type Severity Reaction Status Date / Time No Known Allergies Allergy Verified 04/11/20 12:00 ED Review of Systems ROS: Stated complaint: CHEST PAIN Other details as noted in HPI Comment: All other systems reviewed and negative Constitutional: denies: fever, malaise Respiratory: denies: cough, shortness of breath Cardiovascular: palpitations ED Past Medical Hx - Past Medical History Previous Medical History?: Yes Hx Hypertension: No (TAKES MEDS TO CONTROL RATE) Hx GERD: Yes (FOOD RELATED) Hx Kidney Stones: Yes Hx Tuberculosis: Yes (POSITIVE SKIN TEST,NO [place],NEG CXR-2013) Hx HIV: No Additional medical history: Atrial fibrillation - Surgical History Additional Surgical History: l - Social History Smoking Status: Never Smoker Substance Use Type: Alcohol - Medications Home Medications: Home Medications Medication Instructions Recorded Confirmed Last Taken Type Aspirin [Aspirin BABY CHEW TAB] 81 mg PO DAILY #30 tab.chew 10/21/19 11/08/19 Unknown Rx Metoprolol [Lopressor TAB] 25 mg PO BID 11/08/19 11/08/19 Unknown History Tamsulosin [Flomax] 0.4 mg PO QDAY 11/08/19 11/08/19 Unknown History traMADoL [Ultram] 50 mg PO Q4HR PRN 11/08/19 11/08/19 Unknown History Apixaban [Eliquis] 5 mg PO BID #30 tablet 01/11/20 Unknown Rx Metoprolol Succinate [Toprol Xl] 25 mg PO QDAY #30 tab.er.24h 01/11/20 Unknown Rx ED Physical Exam - General Limitations: No Limitations General appearance: alert, in no apparent distress - Head Head exam: Present: atraumatic, normocephalic - Eye Eye exam: Present: normal appearance - ENT ENT exam: Present: mucous membranes moist - Neck Neck exam: Present: normal inspection, full ROM - Respiratory Respiratory exam: Present: normal lung sounds bilaterally. Absent: respiratory distress, wheezes, rales, rhonchi - Cardiovascular Cardiovascular Exam: Present: regular rate, normal rhythm, normal heart sounds. Absent: systolic murmur, diastolic murmur, rubs, gallop - GI/Abdominal GI/Abdominal exam: Present: soft, normal bowel sounds. Absent: distended, tenderness, guarding, rebound - Extremities Exam Extremities exam: Present: normal inspection - Back Exam Back exam: Present: normal inspection - Neurological Exam Neurological exam: Present: alert, oriented X3 - Psychiatric Psychiatric exam: Present: normal affect, normal mood - Skin Skin exam: Present: warm, dry, intact, normal color. Absent: rash ED Course Vital Signs 04/11/20 12:03 Temperature 98.2 F Pulse Rate 66 Respiratory 18 Rate Blood Pressure 107/74 [Right] O2 Sat by Pulse 98 Oximetry ED Medical Decision Making - Lab Data Result diagrams: 04/11/20 12:58 04/11/20 12:57 Laboratory Results - last 24 hr 04/11/20 04/11/20 04/11/20 12:57 12:57 12:58 WBC 3.8 L RBC 4.32 Hgb 12.7 Hct 37.8 MCV 88 MCH 30 MCHC 34 RDW 13.7 Plt Count 208 Lymph % (Auto) 42.5 H [place] % (Auto) 11.0 H Eos % (Auto) 3.9 Baso % (Auto) 0.9 Lymph # 1.6 [place] # 0.4 Eos # 0.1 Baso # 0.0 Seg Neutrophils % 41.7 Seg Neutrophils # 1.6 L PT 16.0 H INR 1.31 H APTT 33.5 Sodium 140 Potassium 3.9 Chloride 104.1 Carbon Dioxide 26 Anion Gap 14 BUN 10 Creatinine 0.8 Estimated GFR > 60 BUN/Creatinine Ratio 13 Glucose 102 H Calcium 9.0 Magnesium Total Bilirubin 0.30 AST 17 ALT 19 Alkaline Phosphatase 95 Total Creatine Kinase Troponin T < 0.010 Total Protein 6.8 Albumin 4.3 Albumin/Globulin Ratio 1.7 04/11/20 12:58 WBC RBC Hgb Hct MCV MCH MCHC RDW Plt Count Lymph % (Auto) [place] % (Auto) Eos % (Auto) Baso % (Auto) Lymph # [place] # Eos # Baso # Seg Neutrophils % Seg Neutrophils # PT INR APTT Sodium Potassium Chloride Carbon Dioxide Anion Gap BUN Creatinine Estimated GFR BUN/Creatinine Ratio Glucose Calcium Magnesium 2.00 Total Bilirubin AST ALT Alkaline Phosphatase Total Creatine Kinase 98 Troponin T Total Protein Albumin Albumin/Globulin Ratio - EKG Data 04/11/20 14:10 EKG obtained 1210 Normal sinus rhythm rate 70 bpm normal axis normal intervals no ST elevation nonspecific T wave pattern - Medical Decision Making Diagnosis atrial fibrillation intermittent, patient received extensive verbal and written instructions education. He will follow-up with his personal cardiol ogist as appointed on Tuesday. I do not suspect ACS pulmonary embolism or any emergent cause of chest pain. He currently is chest pain-free. However he does endorse intermittent fluttering sensation in his chest. CBC chemistry troponin all within normal limits. PT PTT slightly elevated. Patient does take Eliquis. Critical care attestation.: If time is entered above; I have spent that time in minutes in the direct care of this critically ill patient, excluding procedure time. ED Disposition Clinical Impression: Atrial fibrillation Disposition: DC-01 TO HOME OR SELFCARE Is pt being admited?: No Does the pt Need Aspirin: No Condition: Stable Instructions: Atrial Fibrillation (ED) Referrals: NIMCO STILES MD [Staff Physician] - 3-5 Days
== END 2020-04-11 14:17 | disposition home or self-care (01) ==
LOC: ED 11:57
DX: I48.91 Unspecified atrial fibrillation (principal); Z79.01 Long term (current) use of anticoagulants; K21.9 Gastro-esophageal reflux disease without esophagitis
CPT/HCPCS: 36415; 80053; 82550; 83735; 84484; 85025; 85610; 85730; 93005

== ENCOUNTER 2020-04-23 07:27 | Emergency (ER) | payer OTHER ==
--- NOTE | 2020-04-23 08:21 | Emergency Department Report ---
ED General Adult HPI - General Chief complaint: Arrhythmia/Palpitations Stated complaint: CHEST PAIN Time Seen by Provider: 04/23/20 07:56 Source: patient Mode of arrival: Ambulatory Limitations: No Limitations - History of Present Illness Initial comments: This a very pleasant 44-year-old man with a history of paradoxical A. fib. Review of his echocardiogram of 10/18 indicates that he had a normal right atrium and left atrium and an EF of 50. Yesterday he noted that his heart beat was irregular. It persisted today. He wanted to find out if he was in A. fib. He felt a "vibrating in his right chest". He does not complain of pain or shortness of breath. He said no nausea vomiting fever or chills. He states he has a glass of wine every now and then but does not really relate this to his atrial fibrillation. He does not complain of chest pain. Patient is compliant with his Eliquis and sotalol. He presents with a controlled ventricular response. -: Gradual (Yesterday) Consistency: constant Associated Symptoms: denies other symptoms - Related Data Home Medications Medication Instructions Recorded Confirmed Last Taken Metoprolol [Lopressor TAB] 25 mg PO BID 11/08/19 11/08/19 Unknown Tamsulosin [Flomax] 0.4 mg PO QDAY 11/08/19 11/08/19 Unknown traMADoL [Ultram] 50 mg PO Q4HR PRN 11/08/19 11/08/19 Unknown Previous Rx's Medication Instructions Recorded Last Taken Type Aspirin [Aspirin BABY CHEW TAB] 81 mg PO DAILY #30 tab.chew 10/21/19 Unknown Rx Apixaban [Eliquis] 5 mg PO BID #30 tablet 01/11/20 Unknown Rx Metoprolol Succinate [Toprol Xl] 25 mg PO QDAY #30 tab.er.24h 01/11/20 Unknown Rx Allergies Allergy/AdvReac Type Severity Reaction Status Date / Time No Known Allergies Allergy Verified 04/23/20 07:30 ED Review of Systems ROS: Stated complaint: CHEST PAIN Other details as noted in HPI Constitutional: denies: chills, fever Eyes: denies: eye pain, eye discharge, vision change ENT: denies: ear pain, throat pain Respiratory: denies: cough, shortness of breath, wheezing Cardiovascular: as per HPI, palpitations. denies: chest pain Endocrine: no symptoms reported Gastrointestinal: denies: abdominal pain, nausea, diarrhea Genitourinary: denies: urgency, dysuria Musculoskeletal: denies: back pain, joint swelling, arthralgia Skin: denies: rash, lesions Neurological: denies: headache, weakness, paresthesias Psychiatric: denies: anxiety, depression Hematological/Lymphatic: denies: easy bleeding, easy bruising ED Past Medical Hx - Past Medical History Hx Hypertension: No (TAKES MEDS TO CONTROL RATE) Hx GERD: Yes (FOOD RELATED) Hx Kidney Stones: Yes Hx Tuberculosis: Yes (POSITIVE SKIN TEST,NO TX,NEG CXR-2013) Hx HIV: No Additional medical history: Atrial fibrillation - Surgical History Additional Surgical History: l - Social History Smoking Status: Never Smoker Substance Use Type: Alcohol 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 - Medications Home Medications: Home Medications Medication Instructions Recorded Confirmed Last Taken Type Aspirin [Aspirin BABY CHEW TAB] 81 mg PO DAILY #30 tab.chew 10/21/19 11/08/19 Unknown Rx Metoprolol [Lopressor TAB] 25 mg PO BID 11/08/19 11/08/19 Unknown History Tamsulosin [Flomax] 0.4 mg PO QDAY 11/08/19 11/08/19 Unknown History traMADoL [Ultram] 50 mg PO Q4HR PRN 11/08/19 11/08/19 Unknown History Apixaban [Eliquis] 5 mg PO BID #30 tablet 01/11/20 Unknown Rx Metoprolol Succinate [Toprol Xl] 25 mg PO QDAY #30 tab.er.24h 01/11/20 Unknown Rx ED Physical Exam - General Limitations: No Limitations General appearance: alert, in no apparent distress - Head Head exam: Present: atraumatic, normocephalic - Eye Eye exam: Present: normal appearance. Absent: scleral icterus - ENT ENT exam: Present: mucous membranes moist - Neck Neck exam: Present: normal inspection - Respiratory Respiratory exam: Present: normal lung sounds bilaterally. Absent: respiratory distress - Cardiovascular Cardiovascular Exam: Present: regular rate, irregular rhythm. Absent: systolic murmur, diastolic murmur, rubs, gallop - GI/Abdominal GI/Abdominal exam: Present: soft, normal bowel sounds. Absent: distended, tenderness - Rectal Rectal exam: Present: deferred - Extremities Exam Extremities exam: Present: normal inspection. Absent: pedal edema, calf tenderness - Back Exam Back exam: Present: normal inspection - Neurological Exam Neurological exam: Present: alert, oriented X3, CN II-XII intact. Absent: motor sensory deficit - Psychiatric Psychiatric exam: Present: normal affect, normal mood - Skin Skin exam: Present: warm, dry, intact, normal color. Absent: rash ED Course Vital Signs 04/23/20 04/23/20 04/23/20 07:43 07:50 07:53 Temperature 98.2 F Pulse Rate 81 67 Respiratory 18 13 20 Rate Blood Pressure Blood Pressure 114/67 [Left] O2 Sat by Pulse 97 Oximetry 04/23/20 04/23/20 04/23/20 08:00 08:15 09:00 Temperature Pulse Rate 77 68 62 Respiratory 23 21 17 Rate Blood Pressure 100/78 106/63 107/60 Blood Pressure [Left] O2 Sat by Pulse 99 100 100 Oximetry ED Medical Decision Making - Lab Data Result diagrams: 04/23/20 08:00 04/23/20 08:00 Laboratory Results - last 24 hr 04/23/20 04/23/20 04/23/20 08:00 08:00 08:00 WBC 3.9 L RBC 4.94 Hgb 14.5 Hct 42.9 MCV 87 MCH 29 MCHC 34 RDW 13.3 Plt Count 227 Baso % (Auto) Film Painter PT 14.6 INR 1.16 H APTT 33.3 Sodium 139 Potassium 4.0 Chloride 104.1 Carbon Dioxide 25 Anion Gap 14 BUN 14 Creatinine 1.0 Estimated GFR > 60 BUN/Creatinine Ratio 14 Glucose 136 H Calcium 9.3 Magnesium 2.00 Total Bilirubin 0.20 Direct Bilirubin < 0.2 Indirect Bilirubin 0.0 AST 19 ALT 17 Alkaline Phosphatase 96 NT-Pro-B Natriuret Pep 222.3 Total Protein 7.2 Albumin 4.5 Albumin/Globulin Ratio 1.7 - EKG Data Rate: normal - EKG Data Interpretation: no acute changes, other (Atrial fibrillation with controlled ventricular response) Critical care attestation.: If time is entered above; I have spent that time in minutes in the direct care of this critically ill patient, excluding procedure time. ED Disposition Clinical Impression: Paroxysmal atrial fibrillation Disposition: - TO HOME OR SELFCARE Is pt being admited?: No Does the pt Need Aspirin: No Condition: Stable Instructions: Atrial Fibrillation (ED) Additional Instructions: Continue current meds. Follow-up with Dr. Alonso in the office. Referrals: PRIMARY CARE, [Primary Care Provider] - 3-5 Days NIMCO ALONSO MD [Staff Physician] - 3-5 Days Time of Disposition: 10:00
[2020-04-23 08:28] LABS: Hematocrit 42.9 % (35.5-45.6); Hemoglobin 14.5 gm/dl (11.8-15.2); Mean Corpuscular HGB Conc 34 % (32-34); Mean Corpuscular Volume 87 fl (84-94); Platelet Count 227 K/mm3 (140-440); Red Blood Count 4.94 M/mm3 (3.65-5.03); Red Cell Distribution Width 13.3 % (13.2-15.2)
[2020-04-23 08:31] LABS: INR 1.16 (0.87-1.13)
[2020-04-23 08:32] LABS: Partial Thromboplastin Time 33.3 Sec. (24.2-36.6)
[2020-04-23 08:42] LABS: Alanine Aminotransferase 17 units/L (7-56); Albumin 4.5 g/dL (3.9-5); BUN/Creatinine Ratio 14; Blood Urea Nitrogen 14 mg/dL (9-20); Calcium 9.3 mg/dL (8.4-10.2); Hemolysis Index 6
[2020-04-23 08:45] LABS: Bilirubin,Direct < 0.2 mg/dL (0-0.2)
[2020-04-23 10:24] VITALS: BP 106/65
[2020-04-23 11:35] LABS: Basophils % (Manual) 0 % (0.0-1.8); Total Cells Counted 100
[2020-04-23 11:36] LABS: Platelet Estimate Consistent w Auto
== END 2020-04-23 10:25 | disposition home or self-care (01) ==
LOC: ED 07:27
DX: I48.0 Paroxysmal atrial fibrillation (principal); K21.9 Gastro-esophageal reflux disease without esophagitis; Z87.442 Personal history of urinary calculi; Z86.11 Personal history of tuberculosis; Z79.899 Other long term (current) drug therapy
CPT/HCPCS: 36415; 80048; 80076; 83735; 83880; 85007; 85025; 85610; 85730; 93005

== ENCOUNTER 2020-09-09 00:42 | Observation (INO) | payer OTHER ==
[2020-09-09 01:19] LABS: Basophils % (Auto) 0.8 % (0.0-1.8); Eosinophils # (Auto) 0.1 K/mm3 (0.0-0.4); Eosinophils % (Auto) 2.9 % (0.0-4.3); Hematocrit 43.2 % (35.5-45.6); Hemoglobin 14.7 gm/dl (11.8-15.2); Lymphocytes # (Auto) 2.4 K/mm3 (1.2-5.4); Lymphocytes % (Auto) 49.6 % (13.4-35.0); Mean Corpuscular HGB Conc 34 % (32-34); Mean Corpuscular Volume 87 fl (84-94); Monocytes # (Auto) 0.5 K/mm3 (0.0-0.8); Monocytes % (Auto) 9.5 % (0.0-7.3); Platelet Count 189 K/mm3 (140-440); Red Blood Count 4.96 M/mm3 (3.65-5.03)
[2020-09-09 01:41] LABS: BUN/Creatinine Ratio 17; Blood Urea Nitrogen 17 mg/dL (9-20); Calcium 9.7 mg/dL (8.4-10.2); Hemolysis Index 9
[2020-09-09] MEDS ORDERED: SODIUM CHLORIDE 0.9% 1000 ML 1,000 ML IV ONE (02:26)
--- NOTE | 2020-09-09 02:31 | Emergency Department Report ---
ED Chest Pain HPI - General Chief Complaint: Arrhythmia/Palpitations Stated Complaint: SOB Time Seen by Provider: 09/09/20 02:20 Source: patient Mode of arrival: Ambulatory Limitations: No Limitations - History of Present Illness Initial Comments: This is a 45-year-old male who presents to the emergency department with a complaint of some left-sided chest pain, shortness of breath, and palpitations that started around 9 PM this evening. The patient checked a timber watchman and found his heart rate to be going in between 50 to 120 bpm and "I am in A. fib." The patient does have a history of paroxysmal atrial fibrillation and had a cardiac ablation done on 07/14/2020. The patient had a KIMBERLI done in September 2019 that showed an ejection fraction of 45 to 30%. He had a negative stress test on 11/23/2019. The patient is on Eliquis, a baby aspirin, and sotalol and reports compliance with his medications. He follows with Dr. Alonso for cardio logy. - Related Data Home Medications Medication Instructions Recorded Confirmed Last Taken Pantoprazole [Protonix TAB] 40 mg PO QAM 07/29/20 07/29/20 Unknown Previous Rx's Medication Instructions Recorded Last Taken Type Apixaban [Eliquis] 5 mg PO BID tablet 07/30/20 Unknown Rx Aspirin [Aspirin BABY CHEW TAB] 81 mg PO DAILY #30 tab.chew 07/30/20 Unknown Rx Sotalol HCl [Sotalol] 120 mg PO BID #60 07/30/20 Unknown Rx Allergies Allergy/AdvReac Type Severity Reaction Status Date / Time No Known Allergies Allergy Verified 04/23/20 07:30 Heart Score - HEART Score History: Moderately suspicious EKG: Non-specific Age: 45-65 Risk factors: No known risk factors Troponin: < normal limit HEART Score: 3 - Critical Actions Critical Actions: 0-3 pts:0.9-1.7%risk of adverse cardiac event.Candidate for discharge ED Review of Systems ROS: Stated complaint: SOB Other details as noted in HPI Comment: All other systems reviewed and negative Constitutional: denies: chills, fever Eyes: denies: eye pain, vision change ENT: denies: ear pain, throat pain Respiratory: shortness of breath. denies: cough Cardiovascular: chest pain, palpitations Gastrointestinal: denies: abdominal pain, vomiting Genitourinary: denies: dysuria, discharge Musculoskeletal: denies: back pain, arthralgia Skin: denies: rash, lesions Neurological: denies: headache, weakness ED Past Medical Hx - Past Medical History Previous Medical History?: Yes Hx Hypertension: No (TAKES MEDS TO CONTROL RATE) Hx GERD: (FOOD RELATED) Hx Kidney Stones: Yes Hx Tuberculosis: Yes (POSITIVE SKIN TEST,NO TX,NEG CXR-2013) Hx HIV: No Additional medical history: Atrial fibrillation on Eliquis - Surgical History Past Surgical History?: Yes Additional Surgical History: eblasion on the jul 16 - Social History Smoking Status: Never Smoker - Medications Home Medications: Home Medications Medication Instructions Recorded Confirmed Last Taken Type Pantoprazole [Protonix TAB] 40 mg PO QAM 07/29/20 07/29/20 Unknown History Apixaban [Eliquis] 5 mg PO BID tablet 07/30/20 Unknown Rx Aspirin [Aspirin BABY CHEW TAB] 81 mg PO DAILY #30 tab.chew 07/30/20 Unknown Rx Sotalol HCl [Sotalol] 120 mg PO BID #60 07/30/20 Unknown Rx ED Physical Exam - General Limitations: No Limitations - Other Other exam information: GENERAL: The patient is well-developed well-nourished. HENT: Normocephalic. Atraumatic. Patient has moist mucous membranes. EYES: Extraocular motions are intact. NECK: Supple. Trachea is midline. CHEST/LUNGS: Clear to auscultation. There is no respiratory distress noted. HEART/CARDIOVASCULAR: Irregular rhythm. There is no tachycardia. There is no murmur. ABDOMEN: Abdomen is soft, nontender. Patient has normal bowel sounds. SKIN: Skin is warm and dry. NEURO: The patient is awake, alert, and oriented. The patient is cooperative. The patient has no focal neurologic deficits. Normal speech. MUSCULOSKELETAL: There is no tenderness or deformity. ED Course Vital Signs 09/09/20 09/09/20 09/09/20 00:54 02:50 03:40 Temperature 97.8 F 97.8 F Pulse Rate 68 71 80 Respiratory 17 20 Rate Blood Pressure 105/70 111/73 Blood Pressure 111/63 [Left] O2 Sat by Pulse 99 99 Oximetry BRAD score - Brad Score Age > 65: (0) No Aspirin use within the Past 7 Days: (0) No 3 or more CAD Risk Factors: (0) No 2 or more Angina events in past 24 hrs: (1) Yes Known CAD with more than 50% Stenosis: (0) No Elevated Cardiac Markers: (0) No ST Deviation Greater than 0.5mm: (0) No BRAD Score: 1 ED Medical Decision Making - Lab Data Result diagrams: 09/09/20 01:04 09/09/20 01:04 - EKG Data -: EKG Interpreted by Me - EKG Data When compared to previous EKG there are: changes noted (Previous EKG from 07/30/2020 was sinus rhythm) Interpretation: other (Atrial fibrillation at 86 bpm, left axis deviation, PVCs) - Radiology Data Radiology results: image reviewed interpreted by me: Chest x-ray does not show any acute process. There are no pleural effusions, obvious pneumonia and there is no pneumothorax. No significant cardiomegaly. - Medical Decision Making This patient presents to the emergency department after waking up from sleep with some chest pain, palpitations and shortness of breath and found himself to be in atrial fibrillation. He does have a history of paroxysmal atrial fibrillation. The patient is on sotalol and has been compliant. He has a previous cardiac ablation. Patient says that he had some RVR at home. His rate has been controlled since being in the emergency department but he has remained in atrial fibrillation. He was given a small dose of Cardizem to see if he would convert to a sinus rhythm but he did not. The patient is currently anticoagulated on Eliquis. He will be admitted to the hospital for further evaluation, cardiology consult and has been accepted for admission by the hospitalist, Dr. Ramirez. Critical Care Time: No Critical care attestation.: If time is entered above; I have spent that time in minutes in the direct care of this critically ill patient, excluding procedure time. ED Disposition Clinical Impression: S/P ablation of atrial fibrillation, Acute chest pain, Palpitations Atrial fibrillation Qualifiers: Atrial fibrillation type: unspecified Qualified Code(s): I48.91 - Unspecified atrial fibrillation Disposition: OP ADMIT IP TO THIS HOSP Is pt being admited?: Yes Condition: Fair Instructions: Chest Pain (ED) Time of Disposition: 04:12
[2020-09-09] MEDS ORDERED: dilTIAZem 25 MG/5 ML INJ IV ONE (03:06)
--- NOTE | 2020-09-09 03:12 | XRay Report ---
CHEST 1 VIEW INDICATION / CLINICAL INFORMATION: CP. COMPARISON: 07/29/2020 FINDINGS: SUPPORT DEVICES: None. HEART / MEDIASTINUM: collar closer lockstitch is projecting over the AP window. Cardiac silhouette size and pul monary vascularity are normal. LUNGS / PLEURA: No significant pulmonary or pleural abnormality. No pneumothorax. ADDITIONAL FINDINGS: No significant additional findings. IMPRESSION: 1. No acute findings. Signer Name: Shana Graff MD Signed: 09/09/2020 3:08 AM Workstation Name: [id number]
[2020-09-09] MEDS ORDERED: ONDANSETRON 4 MG/2 ML INJ IV PRN (04:19)
[2020-09-09] MEDS ORDERED: MAGNESIUM HYDROXIDE (MOM) ORAL LIQD UDC PO PRN (04:19)
[2020-09-09] MEDS ORDERED: ACETAMINOPHEN 325 MG TAB PO PRN (04:19)
[2020-09-09] MEDS ORDERED: NITROGLYCERIN 0.4 MG TAB SUBL SL PRN (04:23)
[2020-09-09] MEDS ORDERED: MORPHINE 4 MG/1 ML INJ IV PRN (04:23)
--- NOTE | 2020-09-09 04:31 | History and Physical Report ---
History of Present Illness Date of examination: 09/09/20 Date of admission: 09/09/2020 Chief complaint: Chest Pain History of present illness: 45-year-old male with known history of atrial fibrillation on sotalol and Eliquis presenting to the emergency room today complaining of chest pain and palpitations will start about 2 to 3 hours prior to reporting to the emergency room. We will check a monitoring manager and found out that his heart rate was between 50-1 20. Patient had cardiac ablation done on July 14, 2020. He also had a negative stress test done in October 2019. Patient follows up with Dr. Alonso who is his molder feeder. Upon evaluation in the emergency room today patient was found to be in atrial fibrillation. He was given some IV Cardizem upon arrival in the ER. Patient has been admitted for further evaluation by molder feeder. Past History Past Medical History: atrial fib, GERD, hypertension, other (H/O Kidney stones) Past Surgical History: Other (Catheter ablation) Social history: no significant social history Family history: no significant family history Medications and Allergies Allergies Allergy/AdvReac Type Severity Reaction Status Date / Time No Known Allergies Allergy Verified 04/23/20 07:30 Home Medications Medication Instructions Recorded Confirmed Last Taken Type Pantoprazole [Protonix TAB] 40 mg PO QAM 07/29/20 07/29/20 Unknown History Apixaban [Eliquis] 5 mg PO BID tablet 07/30/20 Unknown Rx Aspirin [Aspirin BABY CHEW TAB] 81 mg PO DAILY #30 tab.chew 07/30/20 Unknown Rx Sotalol HCl [Sotalol] 120 mg PO BID #60 07/30/20 Unknown Rx Active Meds: Active Medications Acetaminophen (Tylenol) 650 mg PO Q4H PRN PRN Reason: Pain MILD(1-3)/Fever >100.5/RODRÍGUEZ Aspirin (Ecotrin) 325 mg PO QDAY MELISSA Heparin Sodium (Porcine) (Heparin) 5,000 unit SUB-Q Q8HR MELISSA Magnesium Hydroxide (Milk Of Magnesia) 30 ml PO Q4H PRN PRN Reason: Constipation Morphine Sulfate (Morphine) 2 mg IV Q5MIN PRN PRN Reason: Chest Pain Nitroglycerin (Nitrostat) 0.4 mg SL Q5M PRN PRN Reason: Chest Pain Ondansetron HCl (Zofran) 4 mg IV Q8H PRN PRN Reason: Nausea And Vomiting Sodium Chloride (Sodium Chloride Flush Syringe 10 Ml) 10 ml IV BID MELISSA Sodium Chloride (Sodium Chloride Flush Syringe 10 Ml) 10 ml IV PRN PRN PRN Reason: LINE FLUSH Review of Systems Constitutional: no fever, no chills Ears, nose, mouth and throat: no nasal congestion, no sore throat Cardiovascular: chest pain, palpitations Respiratory: no cough, no shortness of breath Gastrointestinal: no abdominal pain, no nausea, no vomiting, no diarrhea Genitourinary Male: no dysuria, no hematuria, no nocturia Musculoskeletal: no neck pain, no low back pain Integumentary: no rash, no pruritis Neurological: no headaches, no confusion Psychiatric: no anxiety, no depression Exam - Constitutional Vitals: Temp Pulse Resp BP Pulse Ox 97.8 F 80 20 111/73 99 09/09/20 02:50 09/09/20 03:40 09/09/20 02:50 09/09/20 03:40 09/09/20 02:50 General appearance: Present: no acute distress, well-nourished - EENT Eyes: Present: PERRL, EOM intact. Absent: scleral icterus ENT: hearing intact, clear oral mucosa, dentition normal - Neck Neck: Present: supple, normal ROM - Respiratory Respiratory effort: normal Respiratory: bilateral: CTA - Cardiovascular Rhythm: irregularly irregular Heart Sounds: Present: S1 & S2. Absent: gallop, systolic murmur, diastolic murmur, rub - Extremities Extremities: no ischemia, pulses intact, pulses symmetrical, No edema, Full ROM Peripheral Pulses: within normal limits - Abdominal General gastrointestinal: Present: soft, non-tender, non-distended, normal bowel sounds. Absent: mass - Integumentary Integumentary: Present: clear, warm, dry - Musculoskeletal Musculoskeletal: strength equal bilaterally - Psychiatric Psychiatric: appropriate mood/affect, intact judgment & insight, memory intact, cooperative - Neurologic Neurologic: CNII-XII intact, no focal deficits, moves all extremities HEART Score - HEART Score History: Moderately suspicious EKG: Non-specific Age: 45-65 Risk factors: No known risk factors Troponin: Troponin T < 0.010 ng/mL (0.00-0.029) 09/09/20 01:04 Troponin: < normal limit HEART Score: 3 - Critical Actions Critical Actions: 0-3 pts:0.9-1.7%risk of adverse cardiac event.Candidate for discharge Results - Labs CBC & Chem 7: 09/09/20 01:04 09/09/20 01:04 Labs: Abnormal lab results 09/09/20 09/09/20 Range/Units 01:04 01:04 Lymph % (Auto) 49.6 H (13.4-35.0) % Harlan % (Auto) 9.5 H (0.0-7.3) % Seg Neutrophils % 37.2 L (40.0-70.0) % Glucose 110 H (75-100) mg/dL Assessment and Plan - Patient Problems (1) Acute chest pain Current Visit: Yes Status: Acute Plan to address problem: Possibly secondary to the cardiac arrhythmia however we will check serial car diac enzymes. Patient placed on aspirin, sublingual nitroglycerin and IV morphine as needed for chest pain. (2) Atrial fibrillation Current Visit: Yes Status: Acute Qualifiers: Atrial fibrillation type: unspecified Qualified Code(s): I48.91 - Unspecified atrial fibrillation Plan to address problem: Currently rate is controlled. Patient has been on sotalol. We will resume routine home medication. We await cardiology input. (3) DVT prophylaxis Current Visit: No Status: Acute Plan to address problem: Patient on anticoagulation. (4) Full code status Current Visit: Yes Status: Acute
[2020-09-09] MEDS ORDERED: HEPARIN 5,000 UNIT/1 ML VIAL SUB-Q SCH (06:00)
[2020-09-09] MEDS ORDERED: HEPARIN 5,000 UNIT/1 ML VIAL ONE ×2 (07:52→07:56)
--- NOTE | 2020-09-09 09:36 | Consultation ---
History of Present Illness Consult date: 09/09/20 Requesting physician: GERALDINE VELA Consult reason: atrial fibrillation History of present illness: The pt is a 45-year-old male with a past medical history of paroxysmal atrial fibrillation, s/p atrial fibrillation ablation per Dr. Hunt on 07/14/2020, anticoagulated with Eliquis. He is followed in our office by Dr. Alonso. He presented with c/o palpitations since yesterday evening. Pt was seen in our office at routine f/u with Dr. Alonso yesterday around 4PM and was feeling well at that time. ECG done in our office demonstrates NSR. Pt states that he went home and was on the phone when he noted the onset of palpitations. He checked his heart rate and it was noted to be elevated and thus he decided to seek m edical attention. He denies any chest pain, SOB, n/v, diaphoresis, dizziness or syncope. Patient underwent successful AFib ablation to NSR on 07/14/2020. Patient is currently on Eliquis and sotalol, he reports compliance with his medication regimen. tte done 09/2019 showed EF 50%, mild LVH, no significant abnormalities. Treadmill stress test done 11/23/2019 was negative, excellent exercise tolerance, 13 minutes charito protocol. Chest CTA done 08/29/2020 with no significant findings. Past History Past Medical History: atrial fib, GERD, other (H/O Kidney stones) Past Surgical History: Other (Catheter ablation) Social history: no significant social history Family history: no significant family history Medications and Allergies Allergies Allergy/AdvReac Type Severity Reaction Status Date / Time No Known Allergies Allergy Verified 04/23/20 07:30 Home Medications Medication Instructions Recorded Confirmed Last Taken Type Pantoprazole [Protonix TAB] 40 mg PO QAM 07/29/20 09/09/20 Unknown History Apixaban [Eliquis] 5 mg PO BID tablet 07/30/20 09/09/20 Unknown Rx Aspirin [Aspirin BABY CHEW TAB] 81 mg PO DAILY #30 tab.chew 07/30/20 09/09/20 Unknown Rx Sotalol HCl [Sotalol] 120 mg PO BID #60 07/30/20 09/09/20 Unknown Rx Active Meds: Active Medications Acetaminophen (Tylenol) 650 mg PO Q4H PRN PRN Reason: Pain MILD(1-3)/Fever >100.5/RODRÍGUEZ Aspirin (Ecotrin) 325 mg PO QDAY [facility] Heparin Sodium (Porcine) (Heparin) 5,000 unit SUB-Q Q8HR [facility] Last Admin: 09/09/20 08:24 Dose: Not Given Documented by: Magnesium Hydroxide (Milk Of Magnesia) 30 ml PO Q4H PRN PRN Reason: Constipation Morphine Sulfate (Morphine) 2 mg IV Q5MIN PRN PRN Reason: Chest Pain Nitroglycerin (Nitrostat) 0.4 mg SL Q5M PRN PRN Reason: Chest Pain Ondansetron HCl (Zofran) 4 mg IV Q8H PRN PRN Reason: Nausea And Vomiting Sodium Chloride (Sodium Chloride Flush Syringe 10 Ml) 10 ml IV BID [facility] Sodium Chloride (Sodium Chloride Flush Syringe 10 Ml) 10 ml IV PRN PRN PRN Reason: LINE FLUSH Review of Systems Constitutional: no weight loss, no weight gain, no fever, no chills, no sweats Ears, nose, mouth and throat: no ear pain, no nose pain, no sinus pressure, no sinus pain Cardiovascular: palpitations, no chest pain, no orthopnea, no edema, no syncope, no lightheadedness, no shortness of breath, no dyspnea on exertion Respiratory: no cough, no shortness of breath, no dyspnea on exertion, no congestion, no wheezing, no pain on inspiration Gastrointestinal: no abdominal pain, no nausea, no vomiting, no diarrhea, no constipation, no change in bowel habits Genitourinary Male: no dysuria, no hematuria, no flank pain, no discharge, no urinary frequency, no urinary hesitancy Musculoskeletal: no neck stiffness, no neck pain, no shooting arm pain, no arm numbness/tingling, no low back pain, no shooting leg pain Integumentary: no rash, no pruritis, no redness, no sores, no wounds Neurological: no head injury, no paralysis, no weakness, no parathesias, no numbness, no tingling, no seizures, no syncope Psychiatric: no anxiety Endocrine: no cold intolerance, no heat intolerance Hematologic/Lymphatic: no easy bruising, no easy bleeding Allergic/Immunologic: no urticaria Physical Examination Vital Signs Temp Pulse Resp BP Pulse Ox 97.8 F 68 17 105/70 99 09/09/20 00:54 09/09/20 00:54 09/09/20 00:54 09/09/20 00:54 09/09/20 00:54 General appearance: no acute distress HEENT: Positive: PERRL, Normocephaly, Mucus Membranes Moist Neck: Positive: neck supple, trachea midline Cardiac: Positive: irregularly irregular, S1/S2 Lungs: Positive: clear to auscultation Neuro: Positive: Grossly Intact Abdomen: Negative: Tender Skin: Negative: Rash Musculoskeletal: No Pain Extremities: Absent: edema Results 09/09/20 01:04 09/09/20 01:04 CBC 09/09/20 Range/Units 01:04 WBC 4.8 (4.5-11.0) K/mm3 RBC 4.96 (3.65-5.03) M/mm3 Hgb 14.7 (11.8-15.2) gm/dl Hct 43.2 (35.5-45.6) % Plt Count 189 (140-440) K/mm3 Lymph # (Auto) 2.4 (1.2-5.4) K/mm3 [place] # (Auto) 0.5 (0.0-0.8) K/mm3 Eos # (Auto) 0.1 (0.0-0.4) K/mm3 Baso # (Auto) 0.0 (0.0-0.1) K/mm3 Comprehensive Metabolic Panel 09/09/20 Range/Units 01:04 Sodium 139 (137-145) mmol/L Potassium 4.6 (3.6-5.0) mmol/L Chloride 104.5 (98-107) mmol/L Carbon Dioxide 24 (22-30) mmol/L BUN 17 (9-20) mg/dL Creatinine 1.0 (0.8-1.3) mg/dL Glucose 110 H (75-100) mg/dL Calcium 9.7 (8.4-10.2) mg/dL - Imaging and Cardiology Echo: report reviewed (09/2019 showed EF 50%, mild LVH, no significant abnormalities. ) EKG: report reviewed, image reviewed EKG interpretations - Telemetry EKG Rhythm: Atrial Fibrillation - EKG Supraventricular dysrhythmia: atrial fibrillation Assessment and Plan D/c home sotalol and initiate flecainide and toprol XL. Cont home Eliquis. Plan for DCCV tomorrow AM pending pt remains in AFib overnight. NPO after MN. Case d/w Dr. Hunt. The patient has been seen in conjunction with Dr. Alonso who agrees with the assessment and plan of care. - Patient Problems (1) Paroxysmal atrial fibrillation Current Visit: Yes Status: Chronic (2) S/P ablation of atrial fibrillation Current Visit: Yes Status: Chronic
[2020-09-09] MEDS: METOPROLOL SUCCINATE XL 25 MG TAB PO SCH (10:56)
[2020-09-09] MEDS: APIXABAN 5 MG TAB PO SCH ×2 (10:57→22:20)
[2020-09-09] MEDS: PANTOPRAZOLE 40 MG TAB PO SCH (13:30)
[2020-09-09] MEDS: FLECAINIDE 100 MG TAB PO SCH ×2 (13:30→22:20)
[2020-09-09 15:02] LABS: Basophils % (Auto) 0.3 % (0.0-1.8); Eosinophils # (Auto) 0.1 K/mm3 (0.0-0.4); Eosinophils % (Auto) 2.5 % (0.0-4.3); Hematocrit 44.2 % (35.5-45.6); Hemoglobin 14.6 gm/dl (11.8-15.2); Lymphocytes # (Auto) 2.4 K/mm3 (1.2-5.4); Lymphocytes % (Auto) 45.6 % (13.4-35.0); Mean Corpuscular HGB Conc 33 % (32-34); Mean Corpuscular Volume 87 fl (84-94); Monocytes # (Auto) 0.6 K/mm3 (0.0-0.8); Monocytes % (Auto) 11.1 % (0.0-7.3); Platelet Count 205 K/mm3 (140-440); Red Blood Count 5.09 M/mm3 (3.65-5.03); Red Cell Distribution Width 14.2 % (13.2-15.2)
--- NOTE | 2020-09-09 15:08 | Anesthesia Consultation ---
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
[2020-09-09 15:10] LABS: BUN/Creatinine Ratio 15; Blood Urea Nitrogen 12 mg/dL (9-20); Calcium 9.3 mg/dL (8.4-10.2); Hemolysis Index 12
--- NOTE | 2020-09-09 17:17 | Event Note ---
Date: 09/09/20 Patient admitted for new onset A. fib Patient converted back to normal sinus rhythm Will observe for 23 hours and discharge
[2020-09-10 06:46] LABS: Basophils % (Auto) 0.4 % (0.0-1.8); Eosinophils # (Auto) 0.1 K/mm3 (0.0-0.4); Eosinophils % (Auto) 2.9 % (0.0-4.3); Hematocrit 39.5 % (35.5-45.6); Hemoglobin 13.2 gm/dl (11.8-15.2); Lymphocytes % (Auto) 46.9 % (13.4-35.0); Mean Corpuscular HGB Conc 34 % (32-34); Mean Corpuscular Volume 88 fl (84-94); Monocytes # (Auto) 0.5 K/mm3 (0.0-0.8); Monocytes % (Auto) 10.4 % (0.0-7.3); Platelet Count 166 K/mm3 (140-440); Red Blood Count 4.51 M/mm3 (3.65-5.03); Red Cell Distribution Width 13.7 % (13.2-15.2)
[2020-09-10 06:56] LABS: INR 1.21 (0.87-1.13)
[2020-09-10] MEDS ORDERED: propofoL 200 MG/20 ML VIAL IV ONE ×2 (06:58)
[2020-09-10 06:59] LABS: BUN/Creatinine Ratio 12; Blood Urea Nitrogen 11 mg/dL (9-20); Calcium 9.1 mg/dL (8.4-10.2); Hemolysis Index 9
[2020-09-10 07:53] VITALS: BP 105/74
[2020-09-10] MEDS: PANTOPRAZOLE 40 MG TAB PO SCH (08:31)
--- NOTE | 2020-09-10 09:53 | Progress Note ---
Assessment and Plan Tele reviewed - converted to NSR yesterday around 2PM and maintained NSR overnight. DCCV cancelled. Currently stable cardiac status. Cont Flecainide, Toprol XL and Eliquis. Encourage increased activity and ambulation today. Pending HR remains NSR/WNL with activity, pt may discharge home from cardiology standpoint. Follow up in our [place] office with Dr. Alonso on 09/29/2020 @ 2:15PM. The patient has been seen in conjunction with Dr. Alonso who agrees with the assessment and plan of care. - Patient Problems (1) Paroxysmal atrial fibrillation Current Visit: Yes Status: Chronic Plan to address problem: --> NSR (2) S/P ablation of atrial fibrillation Current Visit: Yes Status: Chronic Subjective Date of service: 09/10/20 Principal diagnosis: AFib Interval history: pt resting in bed, feeling better today. tele reviewed - converted to NSR yesterday around 2PM and maintained NSR overnight. Objective Last Vital Signs Temp 98.1 F 09/10/20 07:40 Pulse 78 09/10/20 08:52 Resp 19 09/10/20 07:39 BP 105/74 09/10/20 07:39 Pulse Ox 98 09/10/20 07:39 - Physical Examination General: No Apparent Distress HEENT: Positive: PERRL, Normocephaly, Mucus Membranes Moist Neck: Positive: neck supple, trachea midline Cardiac: Positive: Reg Rate and Rhythm, S1/S2 Lungs: Positive: clear to auscultation Neuro: Positive: Grossly Intact Abdomen: Negative: Tender Skin: Negative: Rash Musculoskeletal: No Pain Extremities: Absent: edema - Labs and Meds Coagulation 09/10/20 Range/Units 04:58 PT 15.6 H (12.2-14.9) Sec. INR 1.21 H (0.87-1.13) CBC 09/09/20 09/10/20 Range/Units 14:18 04:58 WBC 5.2 4.3 L (4.5-11.0) K/mm3 RBC 5.09 H 4.51 (3.65-5.03) M/mm3 Hgb 14.6 13.2 (11.8-15.2) gm/dl Hct 44.2 39.5 (35.5-45.6) % Plt Count 205 166 (140-440) K/mm3 Lymph # (Auto) 2.4 2.0 (1.2-5.4) K/mm3 [place] # (Auto) 0.6 0.5 (0.0-0.8) K/mm3 Eos # (Auto) 0.1 0.1 (0.0-0.4) K/mm3 Baso # (Auto) 0.0 0.0 (0.0-0.1) K/mm3 Comprehensive Metabolic Panel 09/09/20 09/10/20 Range/Units 14:18 04:58 Sodium 138 140 (137-145) mmol/L Potassium 4.2 3.8 (3.6-5.0) mmol/L Chloride 103.4 105.6 (98-107) mmol/L Carbon Dioxide 25 27 (22-30) mmol/L BUN 12 11 (9-20) mg/dL Creatinine 0.8 0.9 (0.8-1.3) mg/dL Glucose 105 H 92 (75-100) mg/dL Calcium 9.3 9.1 (8.4-10.2) mg/dL - Imaging and Cardiology EKG: report reviewed, image reviewed Echo: report reviewed (09/2019 showed EF 50%, mild LVH, no significant abnormalities. ) - Telemetry EKG Rhythm: Sinus Rhythm
[2020-09-10] MEDS ORDERED: ASPIRIN EC 325 MG TAB PO SCH (10:00)
[2020-09-10] MEDS: METOPROLOL SUCCINATE XL 25 MG TAB PO SCH (10:07)
[2020-09-10] MEDS: APIXABAN 5 MG TAB PO SCH (10:07)
[2020-09-10] MEDS: FLECAINIDE 100 MG TAB PO SCH (10:09)
--- NOTE | 2020-09-10 12:15 | Discharge Summary ---
Providers - Providers Date of Admission: 09/09/20 04:12 Date of discharge: 09/10/20 Attending physician: REBECCA OWENS 09/09/20 Consult to Cardiac Rehabilitation [CONS] Routine Reason For Exam: Phase I 09/09/20 04:13 Consult to Cardiology [CONS] Routine Consulting Provider: NIMCO ALONSO Reason For Exam: atrial fibrillation 09/09/20 04:19 Consult to Physician [CONS] Routine Comment: Consulting Provider: NIMCO ALONSO Physician Instructions: Reason For Exam: ATRIAL FIBRILLATION Primary care physician: PET NUTRITION SPECIALIST Hospitalization Condition: Fair Hospital course: 45-year-old male with known history of atrial fibrillation on sotalol and Eliquis presenting to the emergency room today complaining of chest pain and palpitations will start about 2 to 3 hours prior to reporting to the emergency room. We will check a monitoring manager and found out that his heart rate was between 50-1 20. Patient had cardiac ablation done on July 14, 2020. He also had a negative stress test done in October 2019. Patient follows up with Dr. Alonso who is his tariff publishing agent. Upon evaluation in the emergency room today patient was found to be in atrial fibrillation. He was given some IV Cardizem upon arrival in the ER. Patient has been admitted for further evaluation by tariff publishing agent. Patient now in sinus rhythm and stable rhythm (1) Acute chest pain Current Visit: Yes Status: Acute Plan to address problem: Patient in sinus rhythm Patient to continue flecainide, metoprolol and Eliquis and follow-up with cardiology (2) Atrial fibrillation Current Visit: Yes Status: Acute Qualifiers: Atrial fibrillation type: unspecified Qualified Code(s): I48.91 - Unspecified atrial fibrillation Plan to address problem: Currently rate is controlled. Patient has been on sotalol. We will resume routine home medication. We await cardiology input. Disposition: - TO HOME OR SELFCARE - Discharge Diagnoses (1) Acute chest pain Status: Acute Comment: Nonspecific No Lexiscan at this time (2) Atrial fibrillation Status: Acute Qualifiers: Atrial fibrillation type: unspecified Qualified Code(s): I48.91 - Unspecified atrial fibrillation Comment: Resolved To continue flecainide beta-blockers and Eliquis (3) S/P ablation of atrial fibrillation Status: Chronic Comment: Doing well Core Measure Documentation - Palliative Care Palliative Care/ Comfort Measures: Not Applicable - Core Measures Any of the following diagnoses?: none Exam - Constitutional Vitals: Temp Pulse Resp BP Pulse Ox 98.1 F 80 19 105/74 98 09/10/20 07:40 09/10/20 10:07 09/10/20 07:39 09/10/20 10:07 09/10/20 07:39 General appearance: Present: no acute distress, well-nourished - EENT Eyes: Present: PERRL ENT: hearing intact, clear oral mucosa - Neck Neck: Present: supple, normal ROM - Respiratory Respiratory effort: normal Respiratory: bilateral: CTA - Cardiovascular Heart rate: 78 Rhythm: regular Heart Sounds: Present: S1 & S2. Absent: rub, click - Extremities Extremities: pulses symmetrical, No edema Peripheral Pulses: within normal limits - Abdominal General gastrointestinal: Present: soft, non-tender, non-distended, normal bowel sounds Male genitourinary: Present: normal - Integumentary Integumentary: Present: clear, warm, dry - Musculoskeletal Musculoskeletal: gait normal, strength equal bilaterally - Psychiatric Psychiatric: appropriate mood/affect, intact judgment & insight - Neurologic Neurologic: CNII-XII intact, moves all extremities - Allied Health Allied health notes reviewed: nursing, case management Plan Activity: no restrictions Diet: low salt Follow up with: PRIMARY CAREMD [Primary Care Provider] - 3-5 Days
== END 2020-09-10 16:48 | disposition home or self-care (01) ==
LOC: ED 00:42 → 4A 04:12
PROVIDERS: ADMIT Internal Medicine Geriatric Medicine; ATTEND Internal Medicine
DX: R07.89 Other chest pain (principal); I48.0 Paroxysmal atrial fibrillation; I10 Essential (primary) hypertension; K21.9 Gastro-esophageal reflux disease without esophagitis; R00.2 Palpitations; Z87.442 Personal history of urinary calculi; Z98.890 Other specified postprocedural states; Z79.82 Long term (current) use of aspirin; Z79.899 Other long term (current) drug therapy
CPT/HCPCS: 36415; 71045; 80048; 83880; 84443; 84484; 85025; 85610; 93005; 96361; 96374; 99285; G0378; J1644; J2704; J7030

== ENCOUNTER 2021-01-21 07:56 | Outpatient (CLI) | payer OTHER ==
--- NOTE | 2021-01-21 09:09 | Ultrasound Report ---
Abdominal ultrasound INDICATION: Epigastric pain FINDINGS: Visualized portions of the pancreas appears normal. Aorta and IVC appear normal. Liver is u nremarkable. No gallbladder wall thickening or pericholecystic fluid. Common bile duct measures 4 mm. Kidneys appear normal without hydronephrosis. Spleen measures 9 cm. Portal vein appears patent. IMPRESSION: No acute findings. Signer Name: Justin Streeter MD Signed: 01/21/2021 9:05 AM Workstation Name: [email or web address]
== END 2021-01-21 07:57 | disposition home or self-care (01) ==
LOC: SPVWC 07:56
PROVIDERS: ATTEND Internal Medicine Gastroenterology
DX: R10.13 Epigastric pain (principal); K30 Functional dyspepsia
CPT/HCPCS: 76700

== ENCOUNTER 2021-07-29 18:29 | Emergency (ER) | payer OTHER ==
[2021-07-29] MEDS ORDERED: ASPIRIN 81 MG TAB CHEW PO ONE (19:11)
--- NOTE | 2021-07-29 19:11 | Event Note ---
ED Screening Note Date of service: 07/29/21 Time: 19:08 ED Screening Note: 45-year-old male patient with history of atrial fibrillation presents to the emergency department with complaints of chest pain and dizziness for approximately 4 days. Patient is status post cardiac ablation. He is on m etoprolol. He is not currently anticoagulated. States his atrial fibrillation has not returned in approximately 1 year. General: Awake, appropriately interactive, no acute distress. Neck: Supple. Full range of motion intact. Cardiovascular: Regular rate and rhythm. Normal peripheral perfusion. Pulmonary: Clear to auscultation bilaterally. No respiratory distress. Patient is speaking normally without use of accessory muscles. Skin: No apparent rashes or lesions. Neurological: No facial asymmetry. Speech is clear. Follows commands. Patient is alert and oriented. Musculoskeletal: Moves all four extremities spontaneously with normal range of motion. Psych: Cooperative. Appropriate mood and affect. EKG, labs, chest x-ray, aspirin ordered. Peripheral IV access, security monitor, continuous pulse oximetry requested. I have greeted and performed a focused rapid initial assessment of this patient. A comprehensive ED assessment and evaluation of the patient, analysis of all test results, and completion of the medical decision-making process will be conducted by additional ED providers. This initial assessment/diagnostic orders/clinical plan/treatment(s) is/are subject to change based on patients health status, clinical progression and re-assessment. Further treatment and workup at subsequent clinical provider's discretion. Patient/guardian urged not to elope from the ED as their condition may be serious if not clinically assessed and managed.
[2021-07-29 19:13] LABS: Basophils % (Auto) 0.8 % (0.0-1.8); Eosinophils # (Auto) 0.3 K/mm3 (0.0-0.4); Eosinophils % (Auto) 5.1 % (0.0-4.3); Hemoglobin 12.9 gm/dl (11.8-15.2); Lymphocytes # (Auto) 2.4 K/mm3 (1.2-5.4); Lymphocytes % (Auto) 49.3 % (13.4-35.0); Mean Corpuscular HGB Conc 33 % (32-34); Mean Corpuscular Volume 90 fl (84-94); Monocytes # (Auto) 0.4 K/mm3 (0.0-0.8); Platelet Count 201 K/mm3 (140-440); Red Blood Count 4.36 M/mm3 (3.65-5.03); Red Cell Distribution Width 14.8 % (13.2-15.2)
--- NOTE | 2021-07-29 19:26 | XRay Report ---
CHEST 2 VIEWS INDICATION / CLINICAL INFORMATION: chest pain. COMPARISON: 09/09/2020 FINDINGS: SUPPORT DEVICES: None. HEART / MEDIASTINUM: No significant abnormality. LUNGS / PLEURA: No significant pulmonary or pleural abnormality. No pneumothorax. ADDITIONAL FINDINGS: No significant additional findings. IMPRESSION: 1. No acute findings. Signer Name: Tom Ridley MD Signed: 07/29/2021 7:22 PM Workstation Name: [id number]
[2021-07-29 19:34] LABS: Alanine Aminotransferase 42 units/L (7-56); Albumin 4.6 g/dL (3.9-5); BUN/Creatinine Ratio 12; Blood Urea Nitrogen 11 mg/dL (9-20); Calcium 9.2 mg/dL (8.4-10.2); Hemolysis Index 16
[2021-07-29 20:48] VITALS: BP 126/89
--- NOTE | 2021-07-29 20:51 | Emergency Department Report ---
ED Chest Pain HPI - General Chief Complaint: Chest Pain Stated Complaint: CHEST PAIN,DIZZNESS,HEARTBURN Time Seen by Provider: 07/29/21 19:10 Source: patient Mode of arrival: Ambulatory Limitations: No Limitations - History of Present Illness Initial Comments: 45-year-old male presents to ED with 4-day history of chest pain. Patient reports prior history of atrial fibrillation, status post ablation approximately 1 year ago. Patient states 4 days ago he began having some chest pain. He denies any aggravating or alleviating factors. States it moves across the anterior left chest. Describes it as heartburn. He denies any shortness of breath, nausea or vomiting, diaphoresis, leg pain or swelling. Patient reports some associated lightheadedness. He denies any cough or fever. Patient reports he has received both doses of the Covid vaccine. - Related Data Home Medications Medication Instructions Recorded Confirmed Last Taken Pantoprazole [Protonix TAB] 40 mg PO QAM 07/29/20 07/29/21 Unknown Previous Rx's Medication Instructions Recorded Last Taken Type Aspirin [Aspirin BABY CHEW TAB] 81 mg PO DAILY #30 tab.chew 07/30/20 Unknown Rx Flecainide [Tambocor] 100 mg PO Q12HR #60 tablet 09/10/20 Unknown Rx Metoprolol Xl [Metoprolol 25 mg PO QDAY #30 tablet 09/10/20 Unknown Rx SUCCINATE ER TAB] Allergies Allergy/AdvReac Type Severity Reaction Status Date / Time No Known Allergies Allergy Verified 07/29/21 18:46 Heart Score - HEART Score History: Slightly suspicious EKG: Non-specific Age: 45-65 Risk factors: No known risk factors Troponin: < normal limit HEART Score: 2 - EKG Read Time Time EKG Completed: 18:56 EKG Read Time: 19:00 ED Review of Systems ROS: Stated complaint: CHEST PAIN,DIZZNESS,HEARTBURN Other details as noted in HPI ED Past Medical Hx - Past Medical History Hx Hypertension: No (TAKES MEDS TO CONTROL RATE) Hx Congestive Heart Failure: No Hx Diabetes: No Hx GERD: (FOOD RELATED) Hx Kidney Stones: Yes Hx Asthma: No Hx COPD: No Hx Tuberculosis: Yes (POSITIVE SKIN TEST,NO TX,NEG CXR-2013) Hx HIV: No Additional medical history: Atrial fibrillation on Eliquis - Surgical History Additional Surgical History: eblasion on the jul 16 - Social History Smoking Status: Never Smoker - Medications Home Medications: Home Medications Medication Instructions Recorded Confirmed Last Taken Type Pantoprazole [Protonix TAB] 40 mg PO QAM 07/29/20 07/29/21 Unknown History Aspirin [Aspirin BABY CHEW TAB] 81 mg PO DAILY #30 tab.chew 07/30/20 07/29/21 Unknown Rx Flecainide [Tambocor] 100 mg PO Q12HR #60 tablet 09/10/20 07/29/21 Unknown Rx Metoprolol Xl [Metoprolol 25 mg PO QDAY #30 tablet 09/10/20 07/29/21 Unknown Rx SUCCINATE ER TAB] ED Physical Exam - General Limitations: No Limitations ED Course Vital Signs 07/29/21 07/29/21 07/29/21 18:44 19:46 20:47 Temperature 98.5 F Pulse Rate 73 72 Pulse Rate [ 72 Sitting] Respiratory 16 Rate Blood Pressure 115/81 126/89 [Left] Blood Pressure 126/89 [Sitting] O2 Sat by Pulse 100 Oximetry BRAD score - Brad Score Age > 65: (0) No Aspirin use within the Past 7 Days: (0) No 3 or more CAD Risk Factors: (0) No 2 or more Angina events in past 24 hrs: (1) Yes Known CAD with more than 50% Stenosis: (0) No Elevated Cardiac Markers: (0) No ST Deviation Greater than 0.5mm: (0) No BRAD Score: 1 ED Medical Decision Making - Lab Data Result diagrams: 07/29/21 18:51 07/29/21 18:51 - EKG Data -: EKG Interpreted by Ri EKG shows normal: sinus rhythm, axis, intervals, QRS complexes, ST-T waves Rate: normal - EKG Data Interpretation: no acute changes - Radiology Data Radiology results: report reviewed, image reviewed Critical care attestation.: If time is entered above; I have spent that time in minutes in the direct care of this critically ill patient, excluding procedure time. ED Disposition Clinical Impression: Chest pain Disposition: HOME / SELF CARE / HOMELESS Is pt being admited?: No Condition: Stable Instructions: Nonspecific Chest Pain, Adult Referrals: PRIMARY CARE, [Referring] - 3-5 Days Time of Disposition: 21:56
--- NOTE | 2021-08-03 14:22 | Electrocardiograph Report ---
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 : 1975 Requested By: ANDREW KELLER Order Number: [id number] Reading MD: Julio Cesar Kumar Measurements Intervals [place] Rate: 75 P: 73 CO: 173 QRS: -52 QRSD: 92 T: 59 QT: 398 QTc: 444 Interpretive Statements Sinus rhythm Left axis deviation No previous ECG available for comparison Electronically Signed On 08-03-2021 14:22:35 EDT by Julio Cesar Kumar
== END 2021-07-29 22:16 | disposition home or self-care (01) ==
LOC: ED 18:29
DX: R07.9 Chest pain, unspecified (principal); Z87.442 Personal history of urinary calculi; A15.9 Respiratory tuberculosis unspecified; I48.91 Unspecified atrial fibrillation; Z98.890 Other specified postprocedural states
CPT/HCPCS: 36415; 71046; 80053; 83735; 84484; 85025; 93005; 99284

== ENCOUNTER 2022-05-03 15:09 | Emergency (ER) | payer OTHER ==
--- NOTE | 2022-05-03 15:57 | XRay Report ---
CHEST 2 VIEWS INDICATION / CLINICAL INFORMATION: dizziness with cardiac arrhythmia. COMPARISON: 07/29/2021 FINDINGS: SUPPORT DEVICES: None. HEART / MEDIASTINUM: No significant abnormality. LUNGS / PLEURA: No significant pulmonary or pleural abnormality. No pneumothorax. ADDITIONAL FINDINGS: No significant additional findings. IMPRESSION: 1. No acute findings. No interval change. Signer Name: Shana Graff MD Signed: 05/03/2022 3:53 PM Workstation Name: [id number]
[2022-05-03 18:31] LABS: Basophils % (Auto) 0.6 % (0.0-1.8); Eosinophils # (Auto) 0.3 K/mm3 (0.0-0.4); Eosinophils % (Auto) 4.7 % (0.0-4.3); Hematocrit 46.6 % (35.5-45.6); Hemoglobin 15.1 gm/dl (11.8-15.2); Lymphocytes # (Auto) 1.9 K/mm3 (1.2-5.4); Lymphocytes % (Auto) 31.4 % (13.4-35.0); Mean Corpuscular HGB Conc 32 % (32-34); Mean Corpuscular Volume 87 fl (84-94); Monocytes # (Auto) 0.4 K/mm3 (0.0-0.8); Monocytes % (Auto) 7.4 % (0.0-7.3); Platelet Count 226 K/mm3 (140-440); Red Blood Count 5.34 M/mm3 (3.65-5.03); Red Cell Distribution Width 13.9 % (13.2-15.2)
[2022-05-03 18:53] LABS: Alanine Aminotransferase 12 units/L (7-56); Albumin 5.1 g/dL (3.9-5); BUN/Creatinine Ratio 13; Blood Urea Nitrogen 12 mg/dL (9-20); Calcium 10.3 mg/dL (8.4-10.2); Hemolysis Index 5
[2022-05-04 03:23] VITALS: BP 125/93
--- NOTE | 2022-05-04 04:01 | Emergency Department Report ---
ED Dizziness HPI - General Chief Complaint: Dizziness Stated Complaint: SHORT OF BREATH , DIZZINESS Time Seen by Provider: 05/04/22 03:14 Source: patient Mode of arrival: Ambulatory Limitations: No Limitations - History of Present Illness Initial Comments: Patient is a 46-year-old male presenting to ED with complaint of dizziness for the past 3 months. States the symptoms occur at various times. He denies sensation of the room spinning. No past history of syncope. Reports history of A. fib however states he is currently not in A. fib. This is his first time seeking medical evaluation for this. He also reports intermittent shortness of breath. - Related Data Home Medications Medication Instructions Recorded Confirmed Last Taken Pantoprazole [Protonix TAB] 40 mg PO QAM 07/29/20 07/29/21 Unknown Previous Rx's Medication Instructions Recorded Last Taken Type Aspirin [Aspirin BABY CHEW TAB] 81 mg PO DAILY #30 tab.chew 07/30/20 Unknown Rx Flecainide [Tambocor] 100 mg PO Q12HR #60 tablet 09/10/20 Unknown Rx Metoprolol Xl [Metoprolol 25 mg PO QDAY #30 tablet 09/10/20 Unknown Rx SUCCINATE ER TAB] Allergies Allergy/AdvReac Type Severity Reaction Status Date / Time No Known Allergies Allergy Verified 05/04/22 03:42 ED Review of Systems ROS: Stated complaint: SHORT OF BREATH , DIZZINESS Other details as noted in HPI Constitutional: denies: chills, fever Respiratory: denies: cough, shortness of breath, wheezing Cardiovascular: denies: chest pain, palpitations Gastrointestinal: denies: abdominal pain, nausea, diarrhea Musculoskeletal: denies: back pain, joint swelling, arthralgia Skin: denies: rash, lesions Neurological: denies: headache, weakness, numbness Psychiatric: denies: anxiety, depression ED Past Medical Hx - Past Medical History Previous Medical History?: Yes Hx Hypertension: No (TAKES MEDS TO CONTROL RATE) Hx Congestive Heart Failure: No Hx Diabetes: No Hx GERD: (FOOD RELATED) Hx Kidney Stones: Yes Hx Asthma: No Hx COPD: No Hx Tuberculosis: Yes (POSITIVE SKIN TEST,NO TX,NEG CXR-2013) Hx HIV: No Additional medical history: Atrial fibrillation on Eliquis - Surgical History Past Surgical History?: Yes Additional Surgical History: eblasion on the jul 16 - Social History Smoking Status: Never Smoker Substance Use Type: None - Medications Home Medications: Home Medications Medication Instructions Recorded Confirmed Last Taken Type Pantoprazole [Protonix TAB] 40 mg PO QAM 07/29/20 07/29/21 Unknown History Aspirin [Aspirin BABY CHEW TAB] 81 mg PO DAILY #30 tab.chew 07/30/20 07/29/21 Unknown Rx Flecainide [Tambocor] 100 mg PO Q12HR #60 tablet 09/10/20 07/29/21 Unknown Rx Metoprolol Xl [Metoprolol 25 mg PO QDAY #30 tablet 09/10/20 07/29/21 Unknown Rx SUCCINATE ER TAB] ED Physical Exam - General Limitations: No Limitations General appearance: alert, in no apparent distress - Head Head exam: Present: atraumatic, normocephalic - ENT ENT exam: Present: TM's normal bilaterally - Respiratory Respiratory exam: Present: normal lung sounds bilaterally. Absent: respiratory distress - Cardiovascular Cardiovascular Exam: Present: regular rate, normal rhythm - GI/Abdominal GI/Abdominal exam: Present: soft. Absent: distended, tenderness - Rectal Rectal exam: Present: deferred - Neurological Exam Neurological exam: Present: alert, oriented X3 - Psychiatric Psychiatric exam: Present: normal affect, normal mood - Skin Skin exam: Present: warm, dry, intact, normal color ED Course Vital Signs 05/03/22 05/04/22 15:15 03:23 Temperature 98 F Pulse Rate 84 80 Respiratory 22 16 Rate Blood Pressure 120/78 125/93 [Right] O2 Sat by Pulse 99 100 Oximetry ED Medical Decision Making - Lab Data Result diagrams: 05/03/22 18:08 05/03/22 18:08 - Medical Decision Making No acute findings on EKG. Chest x-ray is normal. CBC and CMP unremarkable. Vital signs are stable. I discussed results with patient. His physical exam is benign. He is stable for discharge home with return precautions Critical care attestation.: If time is entered above; I have spent that time in minutes in the direct care of this critically ill patient, excluding procedure time. ED Disposition Clinical Impression: Nonspecific dizziness Disposition: 01 HOME / SELF CARE / HOMELESS Is pt being admited?: No Condition: Stable Referrals: ABRIL THOMAS MD [Primary Care Provider] - 3-5 Days
--- NOTE | 2022-05-05 17:37 | Electrocardiograph Report ---
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
== END 2022-05-04 04:16 | disposition home or self-care (01) ==
LOC: ED 15:09
DX: R42 Dizziness and giddiness (principal); N20.0 Calculus of kidney; A15.9 Respiratory tuberculosis unspecified; Z79.899 Other long term (current) drug therapy
CPT/HCPCS: 36415; 71046; 80053; 84484; 85025; 93005; 99283